=== PATIENT | male | born 1960 | race Caucasian/White ===

== ENCOUNTER → 2018-01-04 09:15 | Outpatient (CLI) | payer OTHER, SELFPAY ==
[2018-01-04 11:19] LABS: PSA,Total- Diagnostic 5.83 ng/mL (0.0-4.0)
== END ==
PROVIDERS: Family Provider Internal Medicine; PCP Internal Medicine; Visit Provider Urology
DX: R97.20 Elevated prostate specific antigen [PSA] (principal)
CPT/HCPCS: 36415; 84153

== ENCOUNTER 2019-05-08 10:38 | Day surgery (SDC) | payer OTHER, SELFPAY ==
[2019-04-18 09:41] VITALS: BMI 33.8
--- NOTE | 2019-04-18 11:13 | HP_ITS ---
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 Is patient in pain?: No Allergies No Known Allergies Allergy (Verified 04/18/19 09:42) Medications Lansoprazole [Prevacid] 30 mg PO DAILY 06/10/15 [History Confirmed 04/18/19] dutasteride 0.5 mg capsule 0.5 mg PO DAILY 04/18/19 [History Confirmed 04/18/19] enalapril maleate 20 mg tablet 40 mg PO DAILY tab 04/18/19 [History Confirmed 04/18/19] hydrochlorothiazide 12.5 mg tablet 12.5 mg PO DAILY 04/18/19 [History Confirmed 04/18/19] [facility] Medical History (Updated 04/18/19 @ 11:08 by Zion Gunderson MD) Cholelithiasis with chronic cholecystitis (Chronic) Cholelithiasis (Acute) Elevated PSA (Acute) Elevated liver enzymes (Acute) Heartburn (Acute) Hemorrhoids (Acute) Hyperglycemia (Acute) Sleep apnea (Acute) Hypertension (Chronic) Surgical History (Updated 04/18/19 @ 09:40 by Amy Ayala) History of left knee surgery (Acute) History of prostate biopsy (Acute) history bakers cyst right posterior knee (Acute) Family History (Updated 04/18/19 @ 09:38 by Amy Ayala) Brother Diabetes Hypertension Sister Hypercholesterolemia Social History (Updated 04/18/19 @ 11:15 by Zion Gunderson MD) Smoking Status: Never smoker alcohol intake: current alcohol intake frequency: a few times a month substance use type: does not use HPI HPI HPI: TIM METZ, is a 59 M who presents to the office today for HPI HPI Surgical H&P: Yes HPI: TIM METZ, is a 59 M who presents to the office today for surgical consultation regarding intermittent episodes of right upper quadrant pain with some radiation to the back as well as abnormal liver function test. The patient is referred by his primary care physician Dr. Moni Shine and a written copy of my surgical consult recommendations will be returned to him. The patient states that he recently establish care with Dr. Shine. Laboratory demonstrated abnormality in the liver function tests. The patient has been seen twice by general surgeon Dr. Hernandez. No surgery is been recommended. As noted below the patient had a gallbladder ultrasound demonstrating multiple gallstones. The patient has had some liver function test elevation in excluding a significant elevation of his total bilirubin. He denies viral hepatitis. He does note that he drinks alcohol in the form of liquor approximately 2 small glasses per day. He states that he is able not to drink on a particular day and denies withdrawal symptoms. He denies tremors. He has been having intermittent bouts of right upper quadrant pain. He describes the same as a dull cramp. More recently he has had some right scapular pain as well. The pressure pain can persist for several hours. He denies acute change in bowel habits. No bright red blood per rectum or melena. He occasionally will have looser stools. At [facility] on September 12, 2018 a gallbladder ultrasound had been obtained because of elevated liver function tests. The common bile duct was only visualized proximally and measured 4.2 mm. There were multiple gallstones. No gallbladder wall thickening. I have previous remote blood work from May 17, 2017 obtained at the [facility] by Dr. Jamari Morales. At that time the AST was 143 and the alkaline phosphatase 86 and the ALT 168 total bilirubin was 1.8 GGTP was 375. Hepatitis B surface antigen was negative. Hepatitis C antibody was negative. GEOFFREY was negative. The patient also previously January 04, 2018 and had a PSA level that was 5.83. More recent laboratory of September 05, 2018 demonstrated a AST of 116. ALT of 86. Alkaline phosphatase 76. Total bilirubin 3.2 ROS General General: No weight change, appetite, fatigue, colon cancer, breast cancer or weakness HEENT HEENT: No difficulty swallowing, eye injury, eye surgery, swollen glands or hoarseness Endo Endocrine: No thyroid disease, diabetes mellitus, thyroid cancer, Hair loss, heat intolerance or cold intolerance Skin Skin: No rash or changing moles Breast Breast: No left breast lump, right breast lump, nipple discharge, breast pain, abnormal mammogram, abnormal US or breast enlargement Musc Musculoskeletal: Yes gout; no back problems, arthritis, rheumatoid arthritis or joint pain Cardio Cardiovascular: Yes high blood pressure; no murmur, pacemaker, heart disease, atrial fibrillation, heart attack, heart stent, palpitations, shortness of breat with exertion or chest pain Psych Psychiatric: No depression, anxiety or hearing voices Resp Respiratory: No shortness of breath, Yes sleep apnea, No cough, No COPD, No asthma, No emphysema, No wheezing Gastro Gastrointestinal: No abdominal pain, No nausea or vomiting, No diarrhea, No constipation, No blood in stool, Yes acid reflux, Yes hemorrhoids, No ulcers, Yes gallbladder problem, No black,tarry stools Yong Hematologic: No blood thinners, No blood disorders, No bleeding, No anemia, No blood clots Neuro Neurologic: No system reviewed and no additional complaints, except as docu, No as per HPI, No abnormal walking, No abnormal hearing, No abnormal movements, No abnormal speech, No behavioral changes, No burning sensations, No confusion, No seizure-like activity, No unsteadiness, No dizziness, No localized weakness, No frequent falls, No headache(s), No lack of coordination, No loss of vision, No memory loss, No numbness, No other visual disturbances, No radiating pain, No restless legs, No sensory deficit, No fainting, No tingling, No tremor(s), No weakness, No other Exam Const General: cooperative, healthy appearing, comfortable, no acute distress Nutritional Appearance: obese Orientation: alert, awake HENMO Head: normal to inspection Chest Breast Palpation: No nipple discharge Resp Effort & Inspection: normal respiratory effort Auscultation: clear to auscultation bilaterally Cardio Rate: regular rate Rhythm: regular rhythm Heart Sounds: no murmurs GI Palpation: soft, no hepatosplenomegaly Auscultation: normal bowel sounds Neuro General: alert, awake Extrem General: no calf tenderness bilaterally Psych Affect: normal affect Assessment & Plan Problems 1. Calculus of gallbladder with chronic cholecystitis without obstruction K80.10 Plan 59-year-old gentleman. Symptoms and laboratory are suspicious for chronic cholecystitis, cholelithiasis, possible choledocholithiasis. I am recommending to him a laparoscopic cholecystectomy with intraoperative cholangiography. In addition I have suggested that he may be benefited from a laparoscopic common bile duct exploration if indicated. I have discussed with him the technique, benefits, risks, alternatives. He has had an opportunity to ask and have questions answered. In addition I have discussed with him the potential benefit of a laparoscopic needle core liver biopsy to further facilitate his medical management and care. He has had an opportunity to ask and have questions answered. 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 He states that state mandate suggest that he be able to lift 50 pounds. We have tentatively discussed the minimum need of 3 weeks recovery post surgery. Definitive return to work will be decided in his postoperative period. He has had an opportunity to ask and have questions answered. We will schedule and proceed at his discretion. I very much appreciate the kind opportunity of assisting with his surgical care. CC: Dr Moni Gunderson M.D., F.A.C.S. Medications New: hydrochlorothiazide 12.5 mg PO DAILY dutasteride 0.5 mg PO DAILY Coding Level of Care Code 04972 Diagnoses Calculus of gallbladder with chronic cholecystitis without obstruction K80.10 ??Cholelithiasis location: gallbladder ??Biliary obstruction: without biliary obstruction 04/18/19 1115 <Electronically signed by Zion zuniga MD> Date _ Zion Gunderson MD I have re-examined the patient. There are no clinical changes since date of exam. Please refer to the preoperative laboratory demonstrating abnormal liver function tests. Cholangiogram and if need be needle core liver biopsy anticipated.
--- NOTE | 2019-05-06 14:24 | EKG12_ITS ---
Test Reason : PREOP Blood Pressure : / mmHG Vent. Rate : 075 BPM Atrial Rate : 075 BPM P-R Int : 184 ms QRS Dur : 082 ms QT Int : 390 ms P-R-T Axes : 025 005 034 degrees QTc Int : 435 ms Normal sinus rhythm Normal ECG Confirmed by SHALOM ALFARO, ELLEN ([id number]), editor in chief ELISEO DEAL ([id number]) on 05/07/2019 2:48:59 PM Referred By: Zion Gunderson Confirmed By:ELLEN RAUSCH MD
[2019-05-06 15:25] LABS: Hematocrit 46.7 % (40-54); Hemoglobin 15.7 g/dL (13.0-16.5); Mean Corp Hgb Conc 33.6 g/dL (32-36); Mean Corpuscular Hgb 32.8 pg (27.0-32.0); Mean Corpuscular Volume 97.7 fL (80-94); Mean Platelet Vol. 11.3 fl (6.2-12.0); Platelet Count 136 K/mm3 (150-450); RBC Distribution Width CV 14.2 % (11.6-14.6); RBC Distribution Width SD 51.6 fl (35.1-43.9); Red Blood Count 4.78 M/mm3 (4.6-6.2); White Blood Count 5.4 K/mm3 (4.4-11.0)
[2019-05-06 16:19] LABS: ALB/GLOB Ratio 0.7 RATIO (0.9-2.4); AST(SGOT) 74 U/L (15-37); Alanine Aminotransfer ALT/SGPT 79 U/L (16-61); Albumin, Serum 3.5 g/dL (3.2-5.0); Alkaline Phosphatase 91 U/L (45-117); Anion Gap 8 (5-15); BUN 13 mg/dL (7-18); BUN/Creat Ratio 11.2 RATIO (10-20); Calcium,Total 9.5 mg/dL (8.5-10.1); Chloride 101 mmol/L (98-107); Creatinine, Serum 1.16 mg/dL (0.70-1.30); EST Glomerular Filtration Rate 68 mL/min (>60); Est Glom Filt Rate - Afr Amer 83 mL/min (>60); Globulin 4.7 g/dL (2.2-4.2); Glucose 190 mg/dL (74-106); Potassium 4.2 mmol/L (3.5-5.1); Protein, Total 8.2 g/dL (6.4-8.2); Sodium Level 134 mmol/L (136-145)
[2019-05-08 11:12] VITALS: BP 125/83; PULSE 70; RESP 18; TEMP 36.4; O2SAT 98; BMI 33.5
[2019-05-08] MEDS: Lactated Ringers 1,000 ML 100 ML IV (11:36)
--- NOTE | 2019-05-08 13:05 | RAD_ITS ---
CLINICAL HISTORY: Male, 59 years old. Cholecystectomy PROCEDURE: CHOLANGIOGRAM - intraoperative FLUOROSCOPY TIME (if supplied): 4.6 seconds Placement of the catheter and the procedure were performed by: Operating surgeon Fluoroscopy was provided by chief ultrasound technologist, who was present in the room time of the procedure. TECHNIQUE: (Numerous fluoroscopic approximately 177 guided images were obtained during intraoperative cholangiogram demonstrating patency of the bile ducts without evidence for intraluminal stones or obstruction) For more complete information recommend correlation with surgical notes RAD/Cholangiogram/ O R,Initial IMPRESSION: Normal intraoperative cholangiogram Electronically Signed: Garfield Villegas MD at 19:34 EST , Service support ,
--- NOTE | 2019-05-08 13:05 | GALL_PTH ---
PATIENT: TIM METZ LOC[place] [facility] [place][id number] AGE/SX: 59/M ROOM: RE05/08/[address]: Dr. Zion Gunderson MD : 1960 BED: DIS: 05/08/2019 SPEC #: [id number] RECD: 05/09/19 08:36 STATUS: DINORAH DERECK #: [id number] DELIA: 05/08/19 13:[address]: Zion Gunderson DEPT: SURGICAL PATHOLOGY RECD BY: Kenny Gregg ENTERED: 05/09/19 10:43 SP TYPE: SIVAKUMAR MCKINNEY DR: Dr. Moni Shine MD Tissues: A - Gallbladder, NOS B - Liver, NOS Procedures: PAS with Diastase (control) PAS Fungus (control) Trichrome (control) Special Stain Group II Special Stain Group I PAS Stain (control) Surgery Specimen Level III Surgery Specimen Level V AFB Stain (control) Retic (control) Iron Stain (control) HEADER OPERATION: Laparoscopic cholecystectomy with IOC, common bile duct PRE-OP DIAGNOSIS: Calculus of gallbladder, chronic cholecystitis without obstruction K80.10 TISSUE SUBMITTED: A - Liver biopsy tissue, B - Gallbladder MICROSCOPIC DIAGNOSIS A. Liver, core biopsy: Chronic hepatitis, grade 4 with cirrhosis (modified Knodell scoring system for chronic hepatitis). Macrovesicular steatosis and microvesicular steatosis. See microscopic description. B. Gallbladder, cholecystectomy: Chronic cholecystitis and cholelithiasis. Benign paracystic lymph node with non-necrotizing granulomatous inflammation. Negative for acid-fast bacilli and fungal organisms. AM:danielle 05/10/19 COMMENT Case has been reviewed in consultation with Dr. Anthony who concurs with the above diagnosis. IDC:SJ MICROSCOPIC DESCRIPTION Slides are reviewed. A. Sections show hepatic parenchyma with severe limiting plate necrosis and bridging necrosis. Trichrome stain with matched control reveals cirrhosis. Iron stain with matched control does not reveal increased evolution of intraparenchymal iron. PAS stain with and without diastase does not reveal accumulation of abnormal protein. Reticulin stain with matched control reveals normal trabecular pattern. GROSS DESCRIPTION A - Received in fixative is one container labeled with the patient's name and designated biopsy liver tissue. The specimen consists of two elongated fragments of lobo-light brown soft tissue each measuring 1.5 cm in length and 1 cm in diameter. The specimen is totally submitted in one cassette. B - Received is one container labeled with the patient's name and designated gallbladder. The specimen consists of a gallbladder measuring 8.5 cm in length and 2.5 cm in diameter. The external surface is pink-lobo, smooth and glistening for the most part. Focally it is granular, hemorrhagic and contains cautery artifact. The gallbladder contains a small amount of green-yellow mucoid bile and four variable sized black stones measuring in aggregate 1.5 x 1 x 1 cm and 0.3 to 1 cm in greatest dimension. The mucosa is bile-stained and without any mass lesions. The gallbladder wall measures up to 0.2 cm in thickness. A small bluish polyp is noted measuring 0.1 cm in greatest dimension and may represent cholesterolosis. Paintings Conservator sections from the gallbladder and the cystic duct are submitted in one cassette. / SJ:danielle 05/09/19 TC:3 CPT: 36891, 56742, 70603 x6, 75517 x2
[2019-05-08] MEDS: Cefazolin 2 GM in 0.9% Normal Saline 100 ML IV (14:00)
--- NOTE | 2019-05-08 15:41 | PCM.DC.GS ---
Discharge Diet: Light diet - advance as tolerated - if you have questions about your diet instructions, please talk to you doctor. Discharge Activity: May Not Drive - for 3-5 days or while taking narcotic pain medicine. May shower in (days): 1 Lifting Restrictions: 10 pounds Call your doctor if your incision/area has: Continuous Slow Oozing, Sudden Increased Bleeding, Increased Pain/ Swelling, Increased Redness, Foul Smelling Discharge Call your doctor if you observe: Fever of 101 or Higher Suture Line Care: Avoid Pulling/Pushing, Avoid Pinching/Bending Additional Dressing/Incision Instructions:: Change or remove dressing in 4 days. Leave steri-strips in place for 1 week. Allergies/Adverse Reactions: Allergies No Known Allergies Allergy (Verified 05/08/19 11:09) Medications to take at Discharge Lansoprazole [Prevacid] 30 mg PO DAILY 06/10/15 dutasteride 0.5 mg capsule 0.5 mg PO DAILY 04/18/19 enalapril maleate 20 mg tablet 40 mg PO DAILY tab 04/18/19 hydrochlorothiazide 12.5 mg tablet 12.5 mg PO DAILY 04/18/19 Orders to be completed after discharge: 12 Lead EKG [CVS] Time Frame: 04/29/19, Facility: [facility], Location: Cardiovascular Services CBC-Complete Blood Cnt No Diff Time Frame: 04/29/19, Facility: [facility], Location: Laboratory Comprehensive Metabolic Profil Time Frame: 04/29/19, Facility: [facility], Location: Laboratory Primary Care Physician: Moni Shine [Primary Care Provider] - Test Results: Test results from this visit will be discussed in further detail at your follow-up appointment, if applicable. Please Follow Up With: Zion Gunderson MD - [phone] When: Call to make an appointment to be seen in about 10 days.
--- NOTE | 2019-05-08 15:44 | OP.PCM_ITS ---
Problem List (1) Cholelithiasis with chronic cholecystitis Status: Chronic Qualifiers: Cholelithiasis location: gallbladder Biliary obstruction: without biliary obstruction Qualified Code(s): K80.10 - Calculus of gallbladder with chronic cholecystitis without obstruction Report of Operation Date of Procedure: 05/08/19 Pre-Operative Diagnosis: Chronic cholecystitis cholelithiasis possible cirrhosis possible choledocholithiasis Post-Operative Diagnosis: Chronic cholecystitis, cholelithiasis, liver cirrhosis, small dermal abscess epigastric abdomen Surgery/Procedure Performed:: Laparoscopic cholecystectomy with intraoperative cholangiograms. Laparoscopic Jean-Cut needle core right liver biopsy. Incision and drainage dermal abscess epigastric abdomen Description of Surgical Findings:: 59-year-old gentleman who is been having problems with epigastric right upper quadrant pain. He has abnormality of liver function tests. Findings suspicious for either cirrhosis or chronic cholecystitis cholelithiasis. Timeout informed consent was obtained. Was taken the operative room placed on table underwent general endotracheal intubation anesthesia. Ancef 2 g given intravenous preoperatively. The abdomen sterilely prepped draped. He had 2 sites of suspected superficial infection these were excluded from the surgery by placing OpSite dressings and then an Ioban dressing. 0.5% Marcaine was used as a local anesthetic. Skin sites were pre-anesthetized. Throughout the procedure total 30 cc was used. A vertical infraumbilical incision was created holding sutures of 0 Vicryl placed varies needle inserted saline drop test performed the abdomen is insufflated CO2 to pressure of 10 the cervical pressure Mami trocar inserted 10 lap scope inserted on the ventricular injuries and direct physician 5 Phillip port was placed in the epigastric area right upper quadrant right lateral upper quadrant inspection revealed diffusely cirrhotic liver the gallbladder appeared to be mildly distended. I was able to distract the gallbladder I performed a very tedious careful blunt and sharp dissection at the infundibular area. I did copiously used Hem-o-stormy clips to assure hemostasis. I was able to secure a posterior cystic artery with a hemo- lock clip prior to transecting it. I identified the cystic artery and cystic duct with good visualization of the critical view. I placed 2 hemo-lock clips proximally one distally on the cystic artery prior to transecting it. I placed a Hemoclip on the cystic duct and incision in the cystic duct place a cholangiogram catheter to perform fluoroscopic control cholangiograms which demonstrated filling distally into the small bowel and filling proximal without common duct dilatation. I removed the clench Haris catheter and put a very secure hemo-lock clip on the cystic duct stump prior to transecting it. I then tediously dissected the gallbladder free from the liver bed great care was taken to obtain hemostasis. Very minimal amount of liquid bile leak which was aspirated very quickly. There was no stone loss. The gallbladder was released immediately placed in a retrieval bag. The right upper quadrant was irrigated and aspirated free of excess fluid. A piece of fibrillar was placed in the liver bed. I performed then to Jean-Cut needle core biopsies of the right lobe of the liver. These were placed on Telfa and immediately placed in formalin. That area the liver was then treated with electrocautery. Area was carefully inspected was noted to be completely hemostatic. The trochars now removed and visualization. The abdomen was allowed to deflate of the CO2. The fascia at the umbilicus approximate interrupted 0 Vicryl figur e-of-eight suture. Skin edges proximal interrupted 4-0 Monocryl subdermal stitches. Steri-Strips Telfa and OpSite dressings applied. Finally at the end of his time needle abscess in the epigastric area that he presented to incised with an 11 blade scalpel allowed to drain and a Telfa OpSite was placed upon that. Specimen gallbladder and liver cores. Drains none. Blood loss minimal. Zion Gunderson M.D., F.A.C.S. Type of Anesthesia:: General Anesthesiologist: Juan Sprague
[2019-05-08] MEDS: Bupivacaine Mpf 0.5% 30 ML VIAL (15:45)
[2019-05-08 16:06] VITALS: BP 112/56; BP 125/83; PULSE 92; RESP 16; TEMP 36.4; O2SAT 97
[2019-05-08 16:15] VITALS: BP 112/57; BP 125/83; PULSE 85; RESP 16; O2SAT 97
[2019-05-08 16:30] VITALS: BP 122/56; BP 125/83; PULSE 88; RESP 16; O2SAT 97
[2019-05-08 16:45] VITALS: BP 124/62; BP 125/83; PULSE 80; RESP 16; TEMP 36.8; O2SAT 97
[2019-05-08] MEDS: HYDROcodone Bitartrate/Apap 5/325 Tablet PO (17:28)
[2019-05-08 17:51] VITALS: BP 125/83; BP 146/78; PULSE 79; RESP 18; TEMP 36.3; O2SAT 95
== END 2019-05-08 18:11 | disposition home or self-care (01) ==
LOC: SDC 10:40 → AC 10:45
PROVIDERS: Family Provider Internal Medicine; PCP Internal Medicine; Referring Provider Surgery; Visit Provider Surgery
PROC: (CPT 47610; principal; 2019-05-08 12:45)
DX: K80.10 Calculus of gallbladder with chronic cholecystitis without obstruction (principal); K73.9 Chronic hepatitis, unspecified; K74.60 Unspecified cirrhosis of liver; K76.0 Fatty (change of) liver, not elsewhere classified; L02.211 Cutaneous abscess of abdominal wall; I10 Essential (primary) hypertension; M10.9 Gout, unspecified; M48.02 Spinal stenosis, cervical region; G47.30 Sleep apnea, unspecified; K21.9 Gastro-esophageal reflux disease without esophagitis; Z79.899 Other long term (current) drug therapy
CPT/HCPCS: 00790; 10060; 47000; 47563; 36415; 74300; 76000; 80053; 85027; 88304; 88305; 88307; 88312; 88313; 93005; J7120; J2405

== ENCOUNTER → 2020-11-23 10:04 | Outpatient (CLI) | payer OTHER, SELFPAY ==
[2019-05-09 10:11] VITALS: BMI 33.5
--- NOTE | 2020-11-23 10:15 | MRI_ITS ---
MR Abdomen WO/W Contrast 11/23/2020 10:51 AM COMPARISON: None CLINICAL HISTORY: CIRRHOSIS, ABNORMAL LABS TECHNIQUE: Multiplanar T1 and T2 weighted, diffusion and dynamic post-gadolinium images were obtained through the abdomen. FINDINGS: Liver: Slightly nodular contour compatible with cirrhosis. No LI-RADS 5 lesions are seen. Gallbladder: Unremarkable Spleen: Unremarkable Pancreas: Unremarkable Adrenal Glands: Unremarkable Kidneys: Unremarkable GI Tract: Unremarkable Lymphadenopathy: Absent Ascites: Absent Bones: No suspicious lesions MRI/MRI Abd WITH and W/O Contrast IMPRESSION: Slightly nodular contour of the liver could represent early cirrhosis. No suspicious T2 hyperintense or arterially hyperenhancing lesions are seen. Electronically Signed: Constantino Muniz MD at 22:35 EDT Tel , Service support ,
[2020-11-23 10:35] LABS: EGFR FINGERSTICK > 60.0000 mL/min (>60)
== END ==
PROVIDERS: PCP Internal Medicine; Referring Provider Internal Medicine Gastroenterology; Visit Provider Internal Medicine Gastroenterology
DX: K74.60 Unspecified cirrhosis of liver (principal)
CPT/HCPCS: 74183; A9575

== ENCOUNTER → 2021-05-19 11:24 | Outpatient (CLI) | payer OTHER, SELFPAY ==
[2021-05-19 15:18] LABS: Hematocrit 49.6 % (40-54); Hemoglobin 16.6 g/dL (13.0-16.5); Mean Corp Hgb Conc 33.5 g/dL (32-36); Mean Corpuscular Hgb 31.3 pg (27.0-32.0); Mean Corpuscular Volume 93.4 fL (80-94); Mean Platelet Vol. 11.8 fl (6.2-12.0); Platelet Count 164 K/mm3 (150-450); RBC Distribution Width CV 14.3 % (11.6-14.6); RBC Distribution Width SD 49.7 fl (35.1-43.9); Red Blood Count 5.31 M/mm3 (4.6-6.2); White Blood Count 5.6 K/mm3 (4.4-11.0)
[2021-05-19 15:35] LABS: International Normalized Ratio 1.1; Prothrombin Time (Protime)PT. 13.9 SECONDS (11.7-14.9)
[2021-05-19 15:39] LABS: ALB/GLOB Ratio 0.9 RATIO (0.9-2.4); AST(SGOT) 36 U/L (15-37); Alanine Aminotransfer ALT/SGPT 47 U/L (16-61); Albumin, Serum 3.8 g/dL (3.2-5.0); Alkaline Phosphatase 91 U/L (45-117); Anion Gap 8 (5-15); BUN 14 mg/dL (7-18); Calcium,Total 9.7 mg/dL (8.5-10.1); Chloride 103 mmol/L (98-107); EST Glomerular Filtration Rate 81 mL/min (>60); Est Glom Filt Rate - Afr Amer 98 mL/min (>60); Globulin 4.1 g/dL (2.2-4.2); Glucose 101 mg/dL (74-106); Potassium 3.9 mmol/L (3.5-5.1); Protein, Total 7.9 g/dL (6.4-8.2); Sodium Level 136 mmol/L (136-145)
[2021-05-19 16:10] LABS: Partial Thromboplast Time 31.9 Seconds (24.1-36.2)
[2021-05-21 10:16] LABS: AFP, Tumor Marker 3.3 ng/mL (0.0-8.3)
== END ==
PROVIDERS: PCP Internal Medicine; Referring Provider Internal Medicine Gastroenterology; Visit Provider Internal Medicine Gastroenterology
DX: K74.60 Unspecified cirrhosis of liver (principal)
CPT/HCPCS: 36415; 80053; 82105; 85027; 85610; 85730

== ENCOUNTER → 2022-07-27 | Outpatient (CLI) | payer OTHER, SELFPAY ==
--- NOTE | 2022-07-27 12:50 | NEURO ---
NCS and/or EMG Patient Report Ordering Doctor: Moni Shine DATE OF SERVICE: 07/27/22 Elliott presents for electrodiagnostic testing of the left upper limb. He reports numbness and tingling in the left hand. Electrodiagnostic findings: Left median motor nerve demonstrates prolonged distal latency with normal amplitude and conduction velocity. Normal left ulnar motor response, including conduction across the elbow. Absent left median sensory latency at the wrist. Prolonged left median palmar latency. On needle EMG, all muscles tested in the left upper limb showed no evidence of denervation with normal motor unit action potentials. Electrodiagnostic impression: This is an abnormal study in the left upper limb 1. Electrodiagnostic findings demonstrate left-sided median mononeuropathy, consistent with a moderate left carpal tunnel syndrome.
== END | disposition home or self-care (01) ==
LOC: PSN 10:36
PROVIDERS: PCP Internal Medicine; Referring Provider Internal Medicine; Visit Provider Internal Medicine
DX: R20.0 Anesthesia of skin (principal)
CPT/HCPCS: 95886; 95910

== ENCOUNTER → 2022-12-07 | Outpatient (CLI) | payer OTHER, SELFPAY ==
[2022-12-07 12:59] LABS: Hematocrit 47.6 % (40-54); Hemoglobin 15.5 g/dL (13.0-16.5); Mean Corp Hgb Conc 32.6 g/dL (32-36); Mean Corpuscular Hgb 30.8 pg (27.0-32.0); Mean Corpuscular Volume 94.4 fL (80-94); Mean Platelet Vol. 11.2 fl (6.2-12.0); Platelet Count 127 K/mm3 (150-450); RBC Distribution Width CV 14.9 % (11.6-14.6); RBC Distribution Width SD 51.7 fl (35.1-43.9); Red Blood Count 5.04 M/mm3 (4.6-6.2); White Blood Count 4.9 K/mm3 (4.4-11.0)
[2022-12-07 13:05] LABS: International Normalized Ratio 1.1
[2022-12-07 13:06] LABS: Partial Thromboplast Time 29.8 Seconds (24.1-36.2)
[2022-12-07 13:38] LABS: AST(SGOT) 66 U/L (15-37); Alanine Aminotransfer ALT/SGPT 71 U/L (16-61); Albumin, Serum 3.8 g/dL (3.2-5.0); Alkaline Phosphatase 82 U/L (45-117); Anion Gap 8 (5-15); BUN 19 mg/dL (7-18); BUN/Creat Ratio 18.1 RATIO (10-20); Calcium,Total 9.5 mg/dL (8.5-10.1); Chloride 107 mmol/L (98-107); Creatinine, Serum 1.05 mg/dL (0.70-1.30); EST Glomerular Filtration Rate 76 mL/min (>60); Est Glom Filt Rate - Afr Amer 92 mL/min (>60); Glucose 84 mg/dL (74-106); Potassium 4.3 mmol/L (3.5-5.1); Protein, Total 7.8 g/dL (6.4-8.2); Sodium Level 138 mmol/L (136-145)
[2022-12-08 04:07] LABS: AFP, Tumor Marker 3.5 ng/mL (0.0-8.4)
== END | disposition home or self-care (01) ==
PROVIDERS: PCP Internal Medicine; Referring Provider Internal Medicine Gastroenterology; Visit Provider Internal Medicine Gastroenterology
DX: K74.60 Unspecified cirrhosis of liver (principal)
CPT/HCPCS: 36415; 80053; 82105; 85027; 85610; 85730

== ENCOUNTER → 2022-12-22 | Outpatient (CLI) | payer OTHER, SELFPAY ==
--- NOTE | 2022-12-22 07:04 | MRI_ITS ---
STUDY: MRI ABDOMEN WITH AND WITHOUT CONTRAST REASON FOR EXAM: Male, 62 years old. CIRRHOSIS TECHNIQUE: Standardized fat and water weighted pulse sequences were obtained in all 3 orthogonal planes post contrast administration. IV contrast (please see hospital documentation) was administered for the contrast portion of the examination. COMPARISON: 11/23/2020 FINDINGS: Base of the chest is unremarkable. Increasing heterogeneity throughout the liver with micronodular contours particularly along the right hepatic lobe. No hepatic masses are identified. The portal vein is patent with persistent recanalized periumbilical vein suggesting portal hypertension. Gallbladder is absent. Normal spleen. Normal pancreas. Normal bilateral adrenal glands. Normal right kidney. Normal left kidney. Yesenia viscus structures are unremarkable. Abdominal aorta is unremarkable. Normal abdominal wall. No bone marrow edema. MRI/MRI Abd WITH and W/O Contrast IMPRESSION: 1. Worsening heterogeneity and micronodularity of the liver compatible with history provided cirrhosis. 2. Recanalized paraumbilical vein suggesting portal hypertension. Portal vein is patent. 3. No discrete hepatic masses. Electronically Signed: Kofi Irving (Brooks), at 17:12 EDT ,
== END | disposition home or self-care (01) ==
LOC: MRI 06:58
PROVIDERS: PCP Internal Medicine; Referring Provider Internal Medicine Gastroenterology; Visit Provider Internal Medicine Gastroenterology
DX: K74.60 Unspecified cirrhosis of liver (principal)
CPT/HCPCS: 74183; A9575; A4216

== ENCOUNTER → 2023-08-02 | Outpatient (CLI) | payer OTHER, SELFPAY ==
[2023-08-02 11:53] LABS: Hemoglobin 16.8 g/dL (13.0-16.5); Mean Corp Hgb Conc 33.6 g/dL (32-36); Mean Corpuscular Hgb 31.4 pg (27.0-32.0); Mean Corpuscular Volume 93.5 fL (80-94); Mean Platelet Vol. 11.2 fl (6.2-12.0); Platelet Count 145 K/mm3 (150-450); RBC Distribution Width CV 14.5 % (11.6-14.6); RBC Distribution Width SD 49.5 fl (35.1-43.9); Red Blood Count 5.35 M/mm3 (4.6-6.2); White Blood Count 4.6 K/mm3 (4.4-11.0)
[2023-08-02 11:59] LABS: International Normalized Ratio 1.1
[2023-08-02 12:00] LABS: Partial Thromboplast Time 29.4 Seconds (24.1-36.2)
[2023-08-02 12:52] LABS: AST(SGOT) 70 U/L (15-37); Alanine Aminotransfer ALT/SGPT 87 U/L (16-61); Albumin, Serum 3.8 g/dL (3.2-5.0); Alkaline Phosphatase 70 U/L (45-117); Bilirubin, Direct 0.39 mg/dL (0.00-0.30); Cholesterol 163 mg/dL (200); Globulin 4.2 g/dL (2.2-4.2); High Density Lipoprotein 50 mg/dL; Triglycerides 104 mg/dL; Very Low Density Lipoprotein 21 mg/dL (5-40)
[2023-08-02 13:52] LABS: GGTP 187 U/L (15-85)
[2023-08-03 05:52] LABS: AFP, Tumor Marker 3.8 ng/mL (0.0-8.4)
== END | disposition home or self-care (01) ==
PROVIDERS: PCP Internal Medicine; Referring Provider Internal Medicine Gastroenterology; Visit Provider Internal Medicine Gastroenterology
DX: K74.60 Unspecified cirrhosis of liver (principal)
CPT/HCPCS: 36415; 80061; 80076; 82105; 82977; 85027; 85610; 85730

== ENCOUNTER → 2023-08-16 | Outpatient (CLI) | payer OTHER, SELFPAY ==
--- NOTE | 2023-08-16 08:07 | US_ITS ---
STUDY: RIGHT UPPER QUADRANT ABDOMINAL ULTRASOUND REASON FOR EXAM: Male, 63 years old. Cirrhosis of the liver TECHNIQUE: Transabdominal ultrasound was performed with real-time and static gorman scale imaging. TECHNICAL QUALITY: Adequate. COMPARISON: None. FINDINGS: Liver: The liver measures 16.5 cm. There is increased echogenicity consistent with fatty infiltration. The bile ducts are within normal limits. There is hepatic color flow. The direction of portal flow is hepatopetal. There is no demonstrated mass lesion. The umbilical vein is recanalized which is associated with cirrhosis and portal vein hypertension. Gallbladder: The patient is status post cholecystectomy. Common Bile Duct (C.B.D.): The common bile duct is not visualized. Pancreas: Only the pancreatic head is visualized which is grossly unremarkable. The remaining aspects of the pancreas are secured by bowel gas. Right Kidney: Normal size of the right kidney. The right kidney measures 11.3 x 5.2 x 4.41 cm. Normal renal cortex. There is no demonstrated renal mass or cyst. There is no right hydronephrosis. There is no ascites. US/Abdomen Limited IMPRESSION: 1. Diffusely echogenic/fatty infiltration of the liver. No visualized nodularity of the liver on this exam. 2. Recanalization of the umbilical vein which can be associated with cirrhosis and portal vein hypertension Electronically Signed: Jose Maria Melton MD at 10:39 EDT ,
--- OUTSIDE RECORDS SUMMARY | 2023-08-16 08:21 | XMS RPT_ITS | CCD ---
Author Name Unknown Address [address] [place] [address] Organization [facility] Care Team Providers Care Spring Coverer Name Role Phone REFERRING, RICARDO DAWN ID Unavailable Unavailable FAYE VALERO Unavailable Unavailable MIKE ALFARO, DR BROCK Primary Care Physician MIKE ALFARO, DR BROCK Primary Care Physician IRAM ALFARO, DR MEJIA Attending Unavailjensen MCKEON MD, DR BROCK Primary Care Unavailable GLADYS MAYERS DR Attending Unavailable GLADYS MAYERS DR Primary Care Unavailable GLADYS MAYERS DR Admitting Unavailable DELMY MCKEON MD Consulting Unavailable PROVIDER, UNKNOWN Consulting Unavailable PROVIDER, UNKNOWN Consulting Unavailable PROVIDER, UNKNOWN Consulting Unavailable DELMY MCKEON MD Primary Care Unavailable DELMY MCKEON MD Admitting Unavailable DELMY MCKEON MD Attending Unavailable DELMY MCKEON MD Consulting Unavailable PROVIDER, UNKNOWN Consulting Unavailable PROVIDER, UNKNOWN Consulting Unavailable PROVIDER, UNKNOWN Consulting Unavailable DELMY MCKEON MD Consulting Unavailable DELMY MCKEON MD Primary Care Unavailable DELMY MCKEON MD Admitting Unavailable DELMY MCKEON MD Attending Unavailable PROVIDER, UNKNOWN Consulting Unavailable PROVIDER, UNKNOWN Consulting Unavailable PROVIDER, UNKNOWN Consulting Unavailable Medications Current Medications Medication Drug Class(es) Dates Sig (Normalized) Sig (Original) carvedilol 3.125 mg oral tablet (2 sources) alpha-Adrenergic Liam, beta-Adrenergic Liam Start: 08-03-2019 carvedilol 3.125 mg oral tablet Dose : 3.125 mg = 1 tab(s), Oral, BIDM, 0 Refill(s) Start Date: 08/03/19 Status: Ordered Problems Problem Classification Problem Date Documented Da te Episodic/Chronic Diabetes mellitus without complication (1 source) Type 2 diabetes mellitus without complications; Translations: [Type 2 diabetes mellitus without complications] Onset: 07-04-2023 Chronic Essential hypertension (1 source) Essential (primary) hypertension; Translations: [Essential (primary) hypertension] Onset: 07-04-2023 Chronic Other liver diseases (1 source) Unspecified cirrhosis of liver; Translations: [Unspecified cirrhosis of liver] Onset: 07-04-2023 Chronic Other nervous system disorders (3 sources) Carpal tunnel syndrome, left upper limb; Translations: [Carpal tunnel syndrome, left upper limb] Onset: 08-30-2022 Chronic Unclassified (3 sources) Encounter for screening for malignant neoplasm of prostate; Translations: [ENCOUNTER FOR SCREENING FOR MALIGNANT NEOPLASM OF PROSTATE] Onset: 12-02-2016 Episodic Unclassified (2 sources) Elevated prostate specific antigen [PSA]; Translations: [ELEVATED PROSTATE SPECIFIC ANTIGEN (PSA)] Onset: 12-02-2016 Results Test Name Value Interpretation Reference Range Facil ity Vital Signs Date Time Vital Sign Value Performing Clinician Faci lity 01-09-2023 09:55-0400 Diastolic Blood Pressure Non-Invasive [address] JACKIE WALDEN MD [facility] 01-09-2023 09:55-0400 Heart rate 56 /min DR JACKIE WALDEN MD [facility] 01-09-2023 09:55-0400 Respiratory rate 15 /min DR JACKIE WALDEN MD [facility] 01-09-2023 09:55-0400 Systolic Blood Pressure Non-Invasive [address] JACKIE WALDEN MD [facility] 01-09-2023 09:50-0400 Diastolic Blood Pressure Non-Invasive [address] JACKIE WALDEN MD [facility] 01-09-2023 09:50-0400 Heart rate 57 /min DR JACKIE WALDEN MD [facility] 01-09-2023 09:50-0400 Respiratory rate 17 /min DR JACKIE WALDEN MD [address] [place] [address] 01-09-2023 09:50-0400 Systolic Blood Pressure Non-Invasive [address] JACKIE WALDEN MD [facility] 01-09-2023 09:45-0400 Diastolic Blood Pressure Non-Invasive [address] JACKIE WALDEN MD [facility] 01-09-2023 09:45-0400 Heart rate 55 /min DR JACKIE WALDEN MD [facility] 01-09-2023 09:45-0400 Respiratory rate 15 /min DR JACKIE WALDEN MD [facility] 01-09-2023 09:45-0400 Systolic Blood Pressure Non-Invasive [address] JACKIE WALDEN MD [facility] 01-09-2023 09:35-0400 Respiratory Rate - Anes 16 br/min DR JACKIE WALDEN MD [facility] 01-09-2023 09:30-0400 Respiratory Rate - Anes 6 br/min DR JACKIE WALDEN MD [facility] 01-09-2023 09:25-0400 Respiratory Rate - Anes 12 br/min DR JACKIE WALDEN MD [facility] 01-09-2023 08:04-0400 Body height 177.[address] JACKIE WALDEN MD [facility] 01-09-2023 08:04-0400 Body temperature 96.98 [degF] DR JACKIE WALDEN MD [facility] 01-09-2023 08:04-0400 Body weight [address] JACKIE WALDEN MD [facility] 01-09-2023 08:04-0400 Body weight 31.63 kg/m2 DR JACKIE WALDEN MD [facility] 01-09-2023 08:04-0400 Heart rate 57 /min DR JACKIE WALDEN MD [facility] 04-26-2021 09:07-0500 Diastolic Blood Pressure NBP [address] JACKIE WALDEN MD [facility] 04-26-2021 09:07-0500 Heart rate 64 /min DR JACKIE WALDEN MD [facility] 04-26-2021 09:07-0500 Respiratory rate 17 /min DR JACKIE WALDEN MD [facility] 04-26-2021 09:07-0500 Systolic Blood Pressure NBP [address] JACKIE WALDEN MD [facility] 04-26-2021 09:01-0500 Diastolic Blood Pressure NBP [address] JACKIE WALDEN MD [facility] 04-26-2021 09:01-0500 Heart rate 66 /min DR JACKIE WALDEN MD [facility] 04-26-2021 09:01-0500 Respiratory rate 18 /min DR JACKIE WALDEN MD [facility] 04-26-2021 09:01-0500 Systolic Blood Pressure NBP [address] JACKIE WALDEN MD [facility] 04-26-2021 08:57-0500 Diastolic Blood Pressure NBP [address] JACKIE WALDEN MD [facility] 04-26-2021 08:57-0500 Heart rate 66 /min DR JACKIE WALDEN MD [facility] 04-26-2021 08:57-0500 Respiratory rate 17 /min DR JACKIE WALDEN MD [facility] 04-26-2021 08:57-0500 Systolic Blood Pressure NBP [address] JACKIE WALDEN MD [facility] 04-26-2021 08:54-0500 Body temperature 97.7 [degF] DR JACKIE WALDEN MD [facility] 04-26-2021 07:35-0500 Body height 177.[address] JACKIE WALDEN MD [facility] 04-26-2021 07:35-0500 Body weight 102.[address] JACKIE WALDEN MD [facility] 04-26-2021 07:28-0500 Body temperature 97.16 [degF] DR JACKIE WALDEN MD [facility] 04-26-2021 07:28-0500 Heart rate 63 /min DR JACKIE WALDEN MD [facility] Encounters Encounter Date Encounter Type Care Provider Facility Start: 07-04-2023 End: 07-04-2023 [facility] Start: 01-09-2023 End: 01-09-[address] JACKIE WALDEN MD Facility:[facility] Start: 01-09-2023 End: 01-09-[address] JACKIE WALDEN MD [facility] Start: 08-30-2022 End: 09-22-2022 ambulatory [facility]ADYS [facility]valle [facility] Start: 04-26-2021 End: 04-26-[address] JACKIE WALDEN MD [facility] Start: 12-02-2016 End: 12-03-2016 Ambulatory PHY WO ID REFERRING Facility:[facility] Procedures Date Procedure Procedure Detail Performing Clinician Start: 07-04-2023 PSA screening [facility] Payers Date Payer Category Payer Unknown [id number] 2021 Unknown [id number] 2010 Unknown [id number] 1960 Unknown [id number] 1960 Unknown [id number] 1960 Unknown [id number] 1960 Unknown [id number] Social History Date Type Detail Facility Start: 04-26-2021 Never smoked t obacco (finding) [facility] Smokeless tobacc o user within last 30 days [facility] Sex Assigned At [facility] Functional Status Date Assessment Result Facility 01-09-2023 Functional Status Awake, Resting [facility] 01-09-2023 Functional Status More than 8 hours [facility] Mental Status Date Assessment Result Facility 01-09-2023 Mental Status Orientation Oriented x 4 [facility] Evaluation + Plan note 01-09-2023 Note Date & Type Note Facility [facility] ADMISSION HISTORY AN D PHYSICIAL CHIEF COMPLAINT: HISTORY OF PRESENT ILLNESS: REVIEW OF SYSTEMS: ACTIVE PROBLEMS: (6) Elevated liver enzymes (3795384969) GERD (gastroesophageal reflux disease) (165773476) Heartburn (62763367) Hemorrhoids (692208577) Hepatitis (796447345) Sleep apnea (372658416) MEDICATIONS: Active Inpt Meds: None Active PRN Meds: None One Time Meds: None Active IV Meds: Lactated Ringers Infusion 1,000 mL (LR 1,000 mL) Start: 01/09/23 7:58:00 EDT, Rate: 50 mL/hr, 01/09/23 7:58:00 EDT ALLERGIES: (1) [facility] FAMILY HISTORY: SOCIAL HISTORY: PHYSICAL EXAM: VITALS: [id number](kg) 01/09 08:0436.1--[id number]/84875.0 24 Hr Tmax: 36.1 at 01/09 08:04 36 Hr Tmax: 36.1 at 01/09 08:04 Vital Signs are the last 5 in the past 48 hours. Weights display the last 5 within 7 days. Initial Wt: 01/09 100.0 kg 220 lb Current Wt: 01/09 100.0 kg 220 lb GENERAL: HEENT: CARDIOVASCULAR: RESPIRATORY: ABDOMEN: EXREMETIES: NEUROLOGICAL: PSYCHIATRIC: LABS: No 36hr Lab Data DIAGNOSTICS: IMPRESSION: PLAN: History and Physical Update I have examined the patient; reviewed the H&P and there are no changes to the H&P unless noted below. [facility] Hospital Discharge instructions 01-09-2023 Note Date & Type Note Facility 01-09-2023 Hospital Discharge instructions Patient Education 01/09/2023 09:49:27 9 - AO Minor Esophagogastroduodenoscopy (08/16) (CUSTOM) Esophagogastroduodenoscopy This is an endoscopic procedure (a procedure that uses a device like a flexible telescope) that allows your caregiver to view the upper stomach and small bowel. This test allows your caregiver to look at the esophagus. The esophagus carries food from your mouth to your stomach. They can also look at your duodenum. This is the first part of the small intestine that attaches to the stomach. This test is used to detect problems in the bowel such as ulcers and inflammation. MEANING OF TEST Your caregiver will go over the test results with you and discuss the importance and meaning of your results, as well as treatment options and the need for additional tests if necessary. OBTAINING THE TEST RESULTS Your caregiver s office will call you with the results of the test. POST SEDATION INSTRUCTIONS Rest at home today. Since your coordination may be impaired, be cautious on stairways, do not drive any vehicle or operate any heavy machinery, or use any sharp instruments for the remainder of the day. Do not drink any alcoholic beverages or make any major decisions for 24 hours. POST PROCEDURE INSTRUCTIONS Progress slowly with full liquids then resume previous diet and medications. Belching or passing of gas is to be expected. Notify the physician if you have severe chest pain, fever, or if difficulty when swallowing persists. 08/13/13 Custom 01/09/2023 09:49:24 Monitored Anesthesia Care, Care After Monitored Anesthesia Care, Care After These instructions provide you with information about caring for yourself after your procedure. Your health care provider may also give you more specific instructions. Your treatment has been planned according to current medical practices, but problems sometimes occur. Call your health care provider if you have any problems or questions after your procedure. What can I expect after the procedure? After your procedure, you may: Feel sleepy for several hours. Feel clumsy and have poor balance for several hours. Feel forgetful about what happened after the procedure. Have poor judgment for several hours. Feel nauseous or vomit. Have a sore throat if you had a breathing tube during the procedure. Follow these instructions at home: For at least 24 hours after the procedure: Have a responsible adult stay with you. It is important to have someone help care for you until you are awake and alert. Rest as needed. Do not: ?Participate in activities in which you could fall or become injured. ?Drive. ?Use heavy machinery. ?Drink alcohol. ?Take sleeping pills or medicines that cause drowsiness. ?Make important decisions or sign legal documents. ?Take care of children on your own. Eating and drinking Follow the diet that is recommended by your health care provider. If you vomit, drink water, juice, or soup when you can drink without vomiting. Make sure you have little or no nausea before eating solid foods. General instructions Take eiox-ezr-xizgvve and prescription medicines only as told by your health care provider. If you have sleep apnea, surgery and certain medicines can increase your risk for breathing problems. Follow instructions from your health care provider about wearing your sleep device: ?Anytime you are sleeping, including during daytime naps. ?While taking prescription pain medicines, sleeping medicines, or medicines that make you drowsy. If you smoke, do not smoke without supervision. Keep all follow-up visits as told by your health care provider. This is important. Contact a health care provider if: You keep feeling nauseous or you keep vomiting. You feel light-headed. You develop a rash. You have a fever. Get help right away if: You have trouble breathing. Summary For several hours after your procedure, you may feel sleepy and have poor judgment. Have a responsible adult stay with you for at least 24 hours or until you are awake and alert. This information is not intended to replace advice given to you by your health care provider. Make sure you discuss any questions you have with your health care provider. Document Released: 09/11/2016 Document Revised: 08/20/2018 Document Reviewed: 09/11/2016 SmartDocs ([employer]) Patient Education 2020 [employer]. Follow Up Care 12/07/2022 13:01:21 With:JACKIE WALDEN Address: [address] [address] [phone] Business (1) When: Unknown Comments:Follow-up with Primary Care Physician [facility] Summary of episode note 01-09-2023 Note Date & Type Note Facility 01-09-2023 Summary of episode note Discharge Instructions Thank you for allowing [facility] to assist you with your healthcare needs. The following is important discharge information regarding your hospital visit. Your Care Team DELMY MCKEON MD What to do next Follow Up Appointments Follow Up with JACKIE WALDEN When Why: Follow-up with Primary Care Physician Where: [address] [place] [address] [phone] Business (1) Allergies NKA Medications Please ask your primary doctor or pharmacist before taking any other medication not listed, including over the counter drugs, herbal medications, vitamins and or supplements as they may interact with your home medications. What How Much When Instructions Last Dose Unchanged carvedilol (carvedilol 3.125 mg oral tablet) 1 tab(s) by mouth Twice daily with meals Unchanged dutasteride (Avodart 0.5 mg oral capsule) 1 cap by mouth Once a day Unchanged enalapril (enalapril 20 mg oral tablet) 1 tab(s) by mouth Once a day Unchanged lansoprazole (lansoprazole 30 mg oral delayed release capsule) 1 cap by mouth Once a day Please take this list to your next doctor s visit. Bring all medications you take, including over the counter medications, herbals and other supplements with you to your doctor s visit. Patients and families are reminded to discard old lists and to update any records with all medication providers or retail pharmacies. Education Materials Esophagogastroduodenoscopy This is an endoscopic procedure (a procedure that uses a device like a flexible telescope) that allows your caregiver to view the upper stomach and small bowel. This test allows your caregiver to look at the esophagus. The esophagus carries food from your mouth to your stomach. They can also look at your duodenum. This is the first part of the small intestine that attaches to the stomach. This test is used to detect problems in the bowel such as ulcers and inflammation. MEANING OF TEST Your caregiver will go over the test results with you and discuss the importance and meaning of your results, as well as treatment options and the need for additional tests if necessary. OBTAINING THE TEST RESULTS Your caregiver s office will call you with the results of the test. POST SEDATION INSTRUCTIONS Rest at home today. Since your coordination may be impaired, be cautious on stairways, do not drive any vehicle or operate any heavy machinery, or use any sharp instruments for the remainder of the day. Do not drink any alcoholic beverages or make any major decisions for 24 hours. POST PROCEDURE INSTRUCTIONS Progress slowly with full liquids then resume previous diet and medications. Belching or passing of gas is to be expected. Notify the physician if you have severe chest pain, fever, or if difficulty when swallowing persists. 08/13/13 Custom Monitored Anesthesia Care, Care After These instructions provide you with information about caring for yourself after your procedure. Your health care provider may also give you more specific instructions. Your treatment has been planned according to current medical practices, but problems sometimes occur. Call your health care provider if you have any problems or questions after your procedure. What can I expect after the procedure? After your procedure, you may: Feel sleepy for several hours. Feel clumsy and have poor balance for several hours. Feel forgetful about what happened after the procedure. Have poor judgment for several hours. Feel nauseous or vomit. Have a sore throat if you had a breathing tube during the procedure. Follow these instructions at home: For at least 24 hours after the procedure: Have a responsible adult stay with you. It is important to have someone help care for you until you are awake and alert. Rest as needed. Do not: ? Participate in activities in which you could fall or become injured. ? Drive. ? Use heavy machinery. ? Drink alcohol. ? Take sleeping pills or medicines that cause drowsiness. ? Make important decisions or sign legal documents. ? Take care of children on your own. Eating and drinking Follow the diet that is recommended by your health care provider. If you vomit, drink water, juice, or soup when you can drink without vomiting. Make sure you have little or no nausea before eating solid foods. General instructions Take olrl-mpl-teuyfaa and prescription medicines only as told by your health care provider. If you have sleep apnea, surgery and certain medicines can increase your risk for breathing problems. Follow instructions from your health care provider about wearing your sleep device: ? Anytime you are sleeping, including during daytime naps. ? While taking prescription pain medicines, sleeping medicines, or medicines that make you drowsy. If you smoke, do not smoke without supervision. Keep all follow-up visits as told by your health care provider. This is important. Contact a health care provider if: You keep feeling nauseous or you keep vomiting. You feel light-headed. You develop a rash. You have a fever. Get help right away if: You have trouble breathing. Summary For several hours after your procedure, you may feel sleepy and have poor judgment. Have a responsible adult stay with you for at least 24 hours or until you are awake and alert. This information is not intended to replace advice given to you by your health care provider. Make sure you discuss any questions you have with your health care provider. Document Released: 09/11/2016 Document Revised: 08/20/2018 Document Reviewed: 09/11/2016 SmartDocs ([employer]) Patient Education 2020 [employer]. Additional Information VACCINATE! IT SAVES LIVES! Members of the community who have not yet received the COVID-19 vaccine and would like to receive it can visit one of [facility] vaccine clinics. There are many vaccine clinic locations within the [facility]. For locations and available times, please visit [email or web address].[email or web address]/. It is important to note that some COVID mobile vaccine clinics are held outdoors and may be canceled in rainy or stormy conditions. To learn more about pediatric vaccinations (ages 5-11), we invite you to visit the [facility] webpage. [email or web address]/[email or web address] -Fcfam-Nopsuetmdoe-Yyfpzywitv-Asked-Quest ions.html To learn more about the COVID-19 vaccine, we invite you to visit the CDC website for a list of frequently asked questions.https://www.cdc.gov/coronavirus /2019-ncov/vaccines/faq.html [facility] Patient Portal Access Instructions: Stay connected with your healthcare team and access your personal medical information anytime with the [facility] Patient Portal. Please follow the directions below to create your [facility] account: 1.Access the email account you provided upon registration to the hospital/physician office.2.Look for an invitation email from [facility].3.Open the email and access the invitation link: Accept Invitation to [facility].4.Fill in the required zhu to create your account. To access your account, visit [email or web address]. Click the blue button labeled Access Patient Portal and then log in with the username and password that you created in the steps above. You will be able to view your test results, lab results, a summary of your visits, upcoming appointments and more. There is also a convenient messaging option where you can send secure messages to your provider. In addition, you will have the ability to download any documents or summaries to your computer and/or send the information securely to a physician. Remember that your healthcare information is confidential, so carefully consider who you will allow to register on the [facility] Patient Portal for access to your information. You can also access the [facility] One[facility] Patient Portal on the [facility] randy. Simply click on Patient Portal and then log into your account. If you would like to receive a full copy of your medical records, please contact the [facility] Medical Records Department by calling [phone], Monday through Monday between 8 a.m. and 4:30 p.m. HOW TO SAFELY DISPOSE OF PRESCRIPTION MEDICATIONS Please use one of the following methods to safely dispose of your unused medications. 1.Use a drug disposal kit: the drug disposal pouch allows you to safely discard your old and unused drugs. Ask your nurse to give you one when you are discharged.2.Visit a local take-back location: Many local pharmacies and police departments have programs that collect old and unwanted prescription drugs. Call your local pharmacy or go to http://[facility].[employer]/1X3Yt7e to find one close to you.3.Make use of household items: Use cat litter or old coffee grounds to dispose medications if other options are not available. Mix your drugs with these household products, seal them in an airtight container and throw it into the garbage. Call [facility]: [phone] to be sure your drugs can be disposed of in this way. Some medicines may require a different approach.4.Never flush your medications down the toilet. IF YOU HAVE BEEN PRESCRIBED AN OPIOID FOR PAIN If you have been prescribed an opioid (such as hydrocodone, oxycodone or morphine), it is critical to understand the possible side effects and risks of opioid pain medications. Even when taken as directed, opioids can have several side effects including: Tolerance, meaning you might need to take more of a medication for the same pain relief. Nausea, vomiting and/or constipation. Sleepiness, dizziness, dry mouth, confusion, depression or itching. Physical dependence, meaning you have withdrawal symptoms when a medication is stopped, can develop within a few days. KNOW YOUR RESPONSIBILITIES It is important to know exactly how much and how often to take the opioid pain medications you are prescribed. Never take opioids in higher amounts or more often than prescribed. Do not combine opioids with alcohol or other drugs that cause drowsiness, such as benzodiazepines, also known as benzos, including diazepam and alprazolam, muscle relaxants or sleep aids. Never sell or share prescription opioids. This is illegal. Store opioids in a secure place and out of reach of others (including children, family, friends and visitors). The last page of this document has been signed and retained as a CHART COPY. Signatures Patient Education Materials 9 - AO Minor Esophagogastroduodenoscopy (08/16) (CUSTOM) Monitored Anesthesia Care, Care After Medication Leaflets My discharge plan and instructions have been reviewed and explained to me and I,TIM METZ understand my current condition and have read and understand these discharge instructions. I have received a written copy of the plan/instructions. If I have questions, I am aware that I should contact my doctor. 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 Mental status: at preoperative baseline, alert & oriented x 4. Respiratory function: lungs are clear to auscultation. Respiratory support: none. CV function: Normal rate. Cardiovascular support: none. Pain. Nausea status: denies nausea. Postoperative hydration status: within normal limits. Digitally Signed by LISSA ROWELL on 01/09/2023 09:43 AM [facility] Clinical Note 01-09-2023 Note Date & Type Note Facility 01-09-2023 Note [facility] ADMISSION HISTORY AND PHYSICIAL CHIEF COMPLAINT: HISTORY OF PRESENT ILLNESS: REVIEW OF SYSTEMS: ACTIVE PROBLEMS: (6) Elevated liver enzymes (3034410900) GERD (gastroesophageal reflux disease) (967813886) Heartburn (69878269) Hemorrhoids (306820588) Hepatitis (223784391) Sleep apnea (230325376) MEDICATIONS: Active Inpt Meds: None Active PRN Meds: None One Time Meds: None Active IV Meds: Lactated Ringers Infusion 1,000 mL (LR 1,000 mL) Start: 01/09/23 7:58:00 EDT, Rate: 50 mL/hr, 01/09/23 7:58:00 EDT ALLERGIES: (1) NKA FAMILY HISTORY: SOCIAL HISTORY: PHYSICAL EXAM: VITALS: UceotjQrniYGWsiqzTNFuP8WHV2QbsjMp(k g) 01/09 08:0436.1--[id number]/02779.0 24 Hr Tmax: 36.1 at 01/09 08:04 36 Hr Tmax: 36.1 at 01/09 08:04 Vital Signs are the last 5 in the past 48 hours. Weights display the last 5 within 7 days. Initial Wt: 01/09 100.0 kg 220 lb Current Wt: 01/09 100.0 kg 220 lb GENERAL: HEENT: CARDIOVASCULAR: RESPIRATORY: ABDOMEN: EXREMETIES: NEUROLOGICAL: PSYCHIATRIC: LABS: No 36hr Lab Data DIAGNOSTICS: IMPRESSION: PLAN: History and Physical Update I have examined the patient; reviewed the H&P and there are no changes to the H&P unless noted below. Digitally Signed by JACKIE WALDEN MD on 01/09/2023 09:17 AM [facility] Anesthesiology Consult note 01-09-2023 Note Date & Type Note Facility 01-09-2023 Anesthesiology Consult note Patient: TIM METZ Age: 62 years Sex: Male : 1960 Associated Diagnoses: None Author: LISSA ROWELL Preoperative Information Time of last food or liquid consumption: 01/09/2023 00:00:00 Anesthesia history Patient's history: negative. Family's history: negative. Health Status Allergies: Allergic Reactions (Selected) NKA, Allergies (1) ActiveReaction NKANone Documented Current medications: (Selected) Inpatient Medications Ordered LR 1,000 mL: 50 mL/hr, Intravenous Documented Medications Documented Avodart 0.5 mg oral capsule: 0.5 mg, 1 cap(s), Oral, qDay, 0 Refill(s) carvedilol 3.125 mg oral tablet: 3.125 mg, 1 tab(s), Oral, BIDM, 0 Refill(s) enalapril 20 mg oral tablet: 20 mg, 1 tab(s), Oral, qDay, 0 Refill(s) lansoprazole 30 mg oral delayed release capsule: 30 mg, 1 cap(s), Oral, qDay, 0 Refill(s), Medications (1) Active Scheduled: (0) Continuous: (1) Lactated Ringers 1,000 mL 1,000 mL, Intravenous, 50 mL/hr PRN: (0) Problem list: Active Problems (6) Elevated liver enzymes GERD (gastroesophageal reflux disease) Heartburn Hemorrhoids Hepatitis Sleep apnea Histories Past Medical History: No active or resolved past medical history items have been selected or recorded., HTN, VALDEZ, esophageal varices Family History: COPD Father Diabetes Brother Procedure history: Esophagogastroduodenoscopy ([id number]) on 04/26/2021 at 61 Years. Esophagogastroduodenoscopy and banding of esophageal varices ([id number]) on 08/02/2019 at 59 Years. Esophagogastroduodenoscopy (202915825) on 07/22/2019 at 59 Years. Esophagogastroduodenoscopy (286484218) in the month of 06/2019 at 59 Years. Excision of Calix cyst of knee (5702632707). Comments: 07/18/2019 14:00 Lucy Callahan RN right posterior knee Biopsy of prostate (718808709). History of cholecystectomy (0823319080). Arthroscopy of knee joint (803829274). Comments: 08/02/2019 7:59 Lucy Callahan RN left Social History Social & Psychosocial Habits Alcohol 01/09/2023 Use: Past Substance Abuse 01/09/2023 Use: Never Tobacco 01/09/2023 Tobacco Use: Never (less than 100 in l Type: Oral (Snuff, Chew) Smokeless tobacco use: Smokeless tobacco user wi Home/Environment 01/09/2023 Domestic Concerns None Living situation: Home/Independent Lives In Single level home Current Home Treatments CPAP Spouse Name gregoria Marital Status of Patient if Patient Independent Adult: Nutrition/Health 01/09/2023 Type of diet: Regular Appetite Excellent Eating Difficulties None Caffeine intake amount: 1 lg coffee and occ pop daily . Physical Examination Vital Signs 01/09/2023 8:04 EDT Temperature Temporal Artery 36.1 DegC Peripheral Pulse Rate 57 bpm LOW Respiratory Rate 17 br/min Systolic Blood Pressure Non-Invasive 148 mmHg HI Diastolic Blood Pressure Non-Invasive 92 mmHg HI Vital Signs(last 24 hrs) Last Charted Resp Rate 17 br/min (JAN 09 08:04) SBPH 148mmHg (JAN 09 08:04) DBPH 92mmHg (JAN 09 08:04) BMI31.63 (JAN 09 08:04) Measurements from flowsheet : Measurements 01/09/2023 8:04 EDT Height 177.8 cm Admission Weight 100 kg Weight Method Actual [place] Body Weight 73.00 kg BSA Admission 2.18 Body Mass Index 31.63 kg/m2 General: Alert and oriented. Airway: Normal temporomandibular joint mobility. Mallampati classification: II (soft palate, fauces, uvula visible). Head: Normocephalic. Dentition Evaluation: Intact. Neck: Supple. Respiratory: Lungs are clear to auscultation. Cardiovascular: Normal rate. Heart Sounds: Normal. Gastrointestinal: Soft. Musculoskeletal Normal range of motion. Integumentary: Intact. Neurologic: Alert. Review / Management Results review: No qualifying data available , Lab results 01/09/2023 8:04 EDT Designated Person #1 We May Share [facility] gregoria [phone] Designated Person #1 Relationship Spouse Height 177.8 cm Admission Weight 100 kg Weight Method Actual [place] Body Weight 73.00 kg BSA Admission 2.18 Body Mass Index 31.63 kg/m2 Temperature Temporal Artery 36.1 DegC Peripheral Pulse Rate 57 bpm LOW Respiratory Rate 17 br/min Systolic Blood Pressure Non-Invasive 148 mmHg HI Diastolic Blood Pressure Non-Invasive 92 mmHg HI Oxygen Saturation 97 % Status N/A Sensory Deficits None Infectious Disease Symptoms Cough Infectious Disease Recent Exposure No Alcohol and Drug Use No Employee of Institutional Living No Health Care Employee No History of Exposure to TB No History of Positive Chest X-Ray for TB No History of Positive TB Skin Test No Homeless No Known Immunosuppression No Recent Immigrant No Resident of Institutional Living No Bloody Sputum No Fatigue No Fever No Loss of Appetite No Night Sweats No Persistent Cough > 3 Weeks No Weight Loss No Barriers to Learning None evident Teaching Method Explanation, Printed materials Preferred Spoken Language Beninese Preferred Written Language Beninese Information Given by Patient Patient's Current Physicians Patient's Current Physicians Discharge To, Anticipated Home with family care Prev Test Positive/Diagnosis w/COVID-19 Yes Previous COVID-19 Positive Date 2021 Current Quarantine/Isolated any Illness No Any Contact with Sick Animals/Birds No Traveled Anywhere in Last 30 Days No N/A Personal Devices, Patient Valuables None Admission Note-Nursing Procedure/Therapy Intake . Assessment and Plan [place] [employer] Anesthesiologists (ASA) physical status classification: Class III. Anesthetic Preoperative Plan Premedication: None. Anesthetic technique: MAC. Induction: intravenously. Postoperative pain management: Per surgeon. Risks discussed: nausea, vomiting, headache, sore throat, dental injury, hypotension, allergic reaction, serious complications. Informed consent: signed by patient. Digitally Signed by LISSA ROWELL on 01/09/2023 08:13 AM [facility] Evaluation + Plan note 04-26-2021 Note Date & Type Note Facility [facility] ADMISSION HISTORY A [place] PHYSICIAL CHIEF COMPLAINT: HISTORY OF PRESENT ILLNESS: REVIEW OF SYSTEMS: ACTIVE PROBLEMS: (6) Elevated liver enzymes (7264190706) GERD (gastroesophageal reflux disease) (033286239) Heartburn (68122336) Hemorrhoids (775516349) Hepatitis (657123022) Sleep apnea (724130306) MEDICATIONS: Active Inpt Meds: None Active PRN Meds: None One Time Meds: None Active IV Meds: Lactated Ringers Infusion 1,000 mL (LR 1,000 mL) Start: 04/26/21 7:44:00 EST, Rate: 50 mL/hr ALLERGIES: (1) NKA FAMILY HISTORY: SOCIAL HISTORY: PHYSICAL EXAM: VITALS: MqbbgnQjbqJBYwltoKLRqK9JMM5UdwaSa(kg) 04/26 07:2836.2119/47549129AG14/47440.3 24 Hr Tmax: 36.2 at 04/26 07:28 36 Hr Tmax: 36.2 at 04/26 07:28 Vital Signs are the last 5 in the past 48 hours. Weights display the last 5 within 7 days. Initial Wt: 04/26 102.3 kg 225 lb Current Wt: 04/26 102.3 kg 225 lb GENERAL: HEENT: CARDIOVASCULAR: RESPIRATORY: ABDOMEN: EXREMETIES: NEUROLOGICAL: PSYCHIATRIC: LABS: No 36hr Lab Data DIAGNOSTICS: IMPRESSION: PLAN: History and Physical Update I have examined the patient; reviewed the H&P and there are no changes to the H&P unless noted below. [facility] Hospital Discharge instructions 04-26-2021 Note Date & Type Note Facility 04-26-2021 Hospital Discharg e instructions Patient Education 04/26/2021 09:05:02 Upper Endoscopy, Adult, Care After Upper Endoscopy, Adult, Care After This sheet gives you information about how to care for yourself after your procedure. Your health care provider may also give you more specific instructions. If you have problems or questions, contact your health care provider. What can I expect after the procedure? After the procedure, it is common to have: A sore throat. Mild stomach pain or discomfort. Bloating. Nausea. Follow these instructions at home: Follow instructions from your health care provider about what to eat or drink after your procedure. Return to your normal activities as told by your health care provider. Ask your health care provider what activities are safe for you. Take uhsh-gnv-oxaazlv and prescription medicines only as told by your health care provider. Do not drive for 24 hours if you were given a sedative during your procedure. Keep all follow-up visits as told by your health care provider. This is important. Contact a health care provider if you have: A sore throat that lasts longer than one day. Trouble swallowing. Get help right away if: You vomit blood or your vomit looks like coffee grounds. You have: ?A fever. ?Bloody, black, or tarry stools. ?A severe sore throat or you cannot swallow. ?Difficulty breathing. ?Severe pain in your chest or abdomen. Summary After the procedure, it is common to have a sore throat, mild stomach discomfort, bloating, and nausea. Do not drive for 24 hours if you were given a sedative during the procedure. Follow instructions from your health care provider about what to eat or drink after your procedure. Return to your normal activities as told by your health care provider. This information is not intended to replace advice given to you by your health care provider. Make sure you discuss any questions you have with your health care provider. Document Released: 11/20/2012 Document Revised: 11/13/2018 Document Reviewed: 10/22/2018 [employer] ([employer]) Patient Education 2020 [employer]. 04/26/2021 09:04:18 Monitored Anesthesia Care, Care After Monitored Anesthesia Care, Care After These instructions provide you with information about caring for yourself after your procedure. Your health care provider may also give you more specific instructions. Your treatment has been planned according to current medical practices, but problems sometimes occur. Call your health care provider if you have any problems or questions after your procedure. What can I expect after the procedure? After your procedure, you may: Feel sleepy for several hours. Feel clumsy and have poor balance for several hours. Feel forgetful about what happened after the procedure. Have poor judgment for several hours. Feel nauseous or vomit. Have a sore throat if you had a breathing tube during the procedure. Follow these instructions at home: For at least 24 hours after the procedure: Have a responsible adult stay with you. It is important to have someone help care for you until you are awake and alert. Rest as needed. Do not: ?Participate in activities in which you could fall or become injured. ?Drive. ?Use heavy machinery. ?Drink alcohol. ?Take sleeping pills or medicines that cause drowsiness. ?Make important decisions or sign legal documents. ?Take care of children on your own. Eating and drinking Follow the diet that is recommended by your health care provider. If you vomit, drink water, juice, or soup when you can drink without vomiting. Make sure you have little or no nausea before eating solid foods. General instructions Take njwk-sih-qtujrbb and prescription medicines only as told by your health care provider. If you have sleep apnea, surgery and certain medicines can increase your risk for breathing problems. Follow instructions from your health care provider about wearing your sleep device: ?Anytime you are sleeping, including during daytime naps. ?While taking prescription pain medicines, sleeping medicines, or medicines that make you drowsy. If you smoke, do not smoke without supervision. Keep all follow-up visits as told by your health care provider. This is important. Contact a health care provider if: You keep feeling nauseous or you keep vomiting. You feel light-headed. You develop a rash. You have a fever. Get help right away if: You have trouble breathing. Summary For several hours after your procedure, you may feel sleepy and have poor judgment. Have a responsible adult stay with you for at least 24 hours or until you are awake and alert. This information is not intended to replace advice given to you by your health care provider. Make sure you discuss any questions you have with your health care provider. Document Released: 09/11/2016 Document Revised: 08/20/2018 Document Reviewed: 09/11/2016 [employer] ([employer]) Patient Education 2020 [employer]. Follow Up Care 03/23/2021 15:18:16 With:JACKIE WALDEN MD Address: [phone] When: Unknown Comments:Follow-up as needed [facility] Hospital course Narrative Note Date & Type Note Facility Hospital course Narrative No data available for this section [facility] Summary Purpose Family History No Family History Records FoundNo Family History Records Found No data available for this section No Family History Records FoundNo Family History Records Found Advance Directives No Advanced Directives Records FoundNo Advanced Directives Records FoundNo Advanced Directives Records FoundNo Advanced Directives Records Found Additional Source Comments (unrecognized sect ion and content) No Status Records FoundNo Status Records FoundNo Status Records FoundNo Status Records Found INFORMATION SOURCE (unrecogn ized section and content) DATE CREATED AUTHOR AUTHOR'S ORGANIZ ATION 07/03/2021 [facility] DATE CREATED AUTHOR AUTHOR'S ORGANIZ ATION 01/11/2023 [facility] ([place]) DATE CREATED AUTHOR AUTHOR'S MARÍA ATION 07/05/2023 [facility] Patient Care team informatio n (unrecognized section and content) Care Team Personnel Name: DELMY MCKEON MD Member Role: Primary Care Physician Address: Address: [address] [place] [address] [address] [place] [address]- Care Team Related Persons Name: GREGORIA EMTZ Address: Home [address] [place] [address] FOR RECORDS PERTAINING TO PATIENTS WHO ARE OR HAVE BEEN ENROLLED IN A CHEMICAL DEPENDENCY/SUBSTANCEABUSE PROGRAM, SOME INFORMATION MAY BE OMITTED. This clinical summary was aggregated from multiple sources. Caution should be exercised in using it in the provision of clinical care. This summary normalizes information from multiple sources, and as a consequence, information in this document may materially change the coding, format and clinical context of patient data. In addition, data may be omitted in some cases. CLINICAL DECISIONS SHOULD BE BASED ON THE PRIMARY CLINICAL RECORDS. [employer] provides no warranty or guarantee of the accuracy or completeness of information in this document.
== END | disposition home or self-care (01) ==
PROVIDERS: PCP Internal Medicine; Referring Provider Internal Medicine Gastroenterology; Visit Provider Internal Medicine Gastroenterology
DX: K74.60 Unspecified cirrhosis of liver (principal)
CPT/HCPCS: 76705

== ENCOUNTER → 2023-10-25 | Outpatient (CLI) | payer OTHER, SELFPAY ==
--- NOTE | 2023-10-25 18:52 | CT_ITS ---
STUDY: CT SOFT TISSUE NECK WITH CONTRAST REASON FOR EXAM: Male, 63 years old. Submandibular lymphadenopathy RADIATION DOSAGE (If Supplied By Facility): CTDIvol = ( 17.58 ) mGy, DLP = ( 544.62 ) mGycm TECHNIQUE: The patient was scanned in a multi-detector CT scanner. High resolution transaxial imaging was performed following intravenous administration of [id number]. Sagittal and coronal images were reconstructed. Individualized dose optimization techniques were used for this CT. COMPARISON: None. FINDINGS: There is a nonenhancing solid mass in the superficial lobe of the left parotid gland measuring approximately 1.6 x 2.6 x 2.8 cm of uncertain etiology possibly representing a lymphoepithelial cyst or necrotic lymph node. Neoplasm less likely but not entirely excluded.. Normal bilateral purification supervisor spaces. Normal bilateral parapharyngeal spaces. Normal bilateral carotid spaces. Normal bilateral sublingual and submandibular glands and spaces. Normal visualized nasopharynx. Normal retropharyngeal space. Normal perivertebral space. Normal visualized bilateral faucial tonsils. The visualized tongue, tongue base and oropharynx are normal. The visualized cervical lymph nodes (levels I-) are within normal size limits, and maintain normal morphology. There is no demonstrated solid or cystic mass lesion. There is no abnormal contrast enhancement. Normal epiglottis, bilateral vallecula and hypopharynx. The pre-epiglottic and paraglottic adipose spaces are normal. Normal visualized bilateral piriform sinuses, aryepiglottic folds, vocal cords, and arytenoid-cricoid articulations. Normal subglottic trachea. Normal bilateral lobes of the thyroid gland. Normal visualized pulmonary apices. Normal visualized paranasal sinuses. Cervical spine demonstrates mild spondylosis.. CT/Soft Tissue Neck WITH Contrast IMPRESSION: Nonenhancing left parotid mass of indeterminate etiology possibly lymphoepithelial cyst or necrotic node. Neoplasm not entirely excluded. Clinical correlation recommended. Electronically Signed: Garfield Villegas MD at 20:23 EDT ,
[2023-10-25 19:21] LABS: CREATININE FINGERSTICK 1.2 mg/dL (0.70-1.30); EGFR FINGERSTICK > 60.0000 mL/min (>60)
== END | disposition home or self-care (01) ==
LOC: CT 18:51
PROVIDERS: PCP Internal Medicine; Referring Provider Internal Medicine; Visit Provider Internal Medicine
DX: Z01.812 Encounter for preprocedural laboratory examination (principal); R59.0 Localized enlarged lymph nodes
CPT/HCPCS: 70491; Q9967

== ENCOUNTER → 2023-11-15 | Outpatient (CLI) | payer OTHER, SELFPAY ==
--- NOTE | 2023-11-15 | IMM_PTH ---
PATIENT: TIM METZ LOC: LAB U#:[id number] AGE/SX: 63/M ROOM: RE11/15/[address]: Dr. Fabian Forrester MD : 1960 BED: DIS: 11/15/2023 SPEC #: [id number] RECD: 11/16/23 12:05 STATUS: DINORAH REQ #: [id number] DELIA: 11/15/23 00:[address]: Fabian Forrester DEPT: IMMUNOHISTOCHEMISTRY RECD BY: Hermann Pedroza ENTERED: 11/16/23 12:06 SP TYPE: IMMUNO OTHR DR: Dr. Moni Shine MD Tissues: Parotid gland, NOS Procedures: CD45 (add) KI-67 (add) P53 (add) Vimentin (add) Pankeratin (initial) S-100 (add) PHYSICIAN & INSTITUTION [place] [address] SPECIMEN INFORMATION: Tissue Source: Left parotid mass Clinical Info: Left parotid mass Specimen Number: [id number] CPT code: 73293,53848w6 METHODOLOGY: Deparaffinized sections of prefer/formalin-fixed tissue or PAP/DQ stained slides are incubated with monoclonal/polyclonal antibodies/oligonucleotide probes. Localization is made via biotin free immunoperoxidase method. Appropriate controls are performed and reacted as expected. Results on target cell population are indicated in the following table: RESULTS: ANTIBODY / CLONE RESULT AE1-3 (AE1/AE3/PCK26) positive CD45 (RP2/18) negative Vimentin (V9) negative S-100 (4C4.9) negative P53 (DO-7) negative Ki-67 (30-9) negative These tests were developed and their performance characteristics determined by [facility]. They may not have been cleared or approved by the U.S. Food and Drug Administration. The FDA has determined that such clearance or approval is not necessary. The above immunohistochemical/dualISH markers are ordered and reviewed by the Pathologist. INTERPRETATION: Fine needle aspiration, left parotid mass: Rare degenerating epithelial cells. ANNA/ 11/17/2023
--- NOTE | 2023-11-15 09:45 | ASPOS_PTH ---
PATIENT: TIM METZ LOC: [facility] U#:[id number] AGE/SX: 63/M ROOM: RE11/15/[address]: Dr. Fabian Forrester MD : 1960 BED: DIS: 11/15/2023 SPEC #: [id number] RECD: 11/15/23 10:45 STATUS: DINORAH REVandana #: [id number] DELIA: 11/15/23 09:[address]: Fabian Forrester DEPT: CYTOLOGY RECD BY: Karol Carmona ENTERED: 11/15/23 10:56 SP TYPE: ASP HERE OTHR DR: Dr. Moni Shine MD Tissues: Parotid gland, NOS Procedures: Surgery Specimen Level IV Cytology Other Fine Needle Asp on Site HEADER OPERATION: Fine needle aspiration left parotid mass PRE-OP DIAGNOSIS: Left parotid mass TISSUE SUBMITTED: Smears and fluid for cytology DIAGNOSIS CYTOLOGY Fine needle aspiration, left parotid mass (smears and cellblock): Degenerating cellular debris and amorphous proteinaceous material. No evidence of malignancy. See comment. /mr 11/16/2023 COMMENT The specimen contains degenerating epithelial cells and abundant proteinaceous material. Approximately 3.0cc of fluid was aspirated from the lesion which resulted in a near resolution of mass in the area. Immunohistochemistry ([id number]) supports the above diagnosis. Case has been reviewed in consultation with Dr. Anthony who concurs with the above diagnosis. IDC:SJ A fine needle aspiration was performed and the specimen is evaluated at the time of FNA by Dr. Strong. Immediate Evaluation = Degenerating cellular debris and proteinaceous material. No evidence of malignancy. CYTOLOGY STUDY Slides are reviewed. CYTOLOGY GROSS Received is 3.0 ml of milky-white labeled with the patient's name, and designated Left parotid mass. 5 imprints and 2 paps are made from the submitted fluid and the rest is added to CytoLyt for cell block preparation. Submitted for cytology study. / 11/15/2023 TC:5 CPT: 59504,75295,64375,88348
== END | disposition home or self-care (01) ==
PROVIDERS: PCP Internal Medicine; Referring Provider Otolaryngology; Visit Provider Otolaryngology
DX: R22.0 Localized swelling, mass and lump, head (principal)
CPT/HCPCS: 10021; 88161; 88305; 88341; 88342

== ENCOUNTER 2024-01-15 10:21 | Emergency (ER) | payer OTHER, SELFPAY ==
[2024-01-15 10:22] VITALS: BP 144/90; PULSE 77; RESP 19; TEMP 36.2; O2SAT 97; BMI 32.8
[2024-01-15 11:24] VITALS: BP 135/85; PULSE 69; RESP 16; TEMP 37.3; O2SAT 99
--- NOTE | 2024-01-15 11:53 | EX.ED.GUMALE ---
HPI History of Present Illness Chief Complaint: Complaint Informant: patient Narrative Narrative: Patient has had a urinary catheter in for postoperative urinary retention for about a week. He states yesterday started leaking urine around the catheter and having some pain at the tip of the penis where the catheter is, and the urine is darker than normal. He denies abdominal pain, low back pain, fevers and chills acutely with any of this. He states he has seen urine in the tubing and bag at all times and denies the appearance of an obstruction. He has an appointment with urology in 3 days, he has seen urology before for enlarged prostate issues. He is on no anticoagulants. [facility] Medical History Cirrhosis Cholelithiasis with chronic cholecystitis Elevated PSA Cholelithiasis Hyperglycemia Elevated liver enzymes Hypertension Sleep apnea Hemorrhoids Heartburn Home Medications ?Medication ?Instructions ?Recorded ?Last Taken ?Type lansoprazole 30 mg capsule,delayed 30 mg PO DAILY 06/10/15 05/08/19 08:00 History release dutasteride 0.5 mg capsule 0.5 mg PO DAILY 04/18/19 Unknown History enalapril maleate 20 mg tablet 40 mg PO DAILY 04/18/19 05/08/19 08:00 History hydrochlorothiazide 12.5 mg tablet 12.5 mg PO DAILY 04/18/19 Unknown History ciprofloxacin HCl 500 mg tablet 500 mg PO BID #14 TABLETS 01/15/24 Unknown Rx Allergy/AdvReac Type Severity Reaction Status Date / Time No Known Allergies Allergy Verified 05/15/19 13:42 Family History Brother Diabetes Hypertension Sister Hypercholesterolemia Surgical History History of liver biopsy History of cholecystectomy History of prostate biopsy history bakers cyst right posterior knee History of left knee surgery Social History Smoking Status: Never smoker alcohol intake: current alcohol intake frequency: a few times a month substance use type: does not use ROS ROS ED Constitutional Constitutional ED: Denies chills or fever(s) Gastrointestinal Gastrointestinal: Denies abdominal pain Genitourinary Genitourinary ED: Reports as per HPI Musculoskeletal Musculoskeletal: Denies back pain Neurologic Neurologic: Denies paresthesias or weakness EXAM Physical Exam Const Vital Signs: 01/15/24 10:22 01/15/24 10:22 01/15/24 11:24 Temperature 97.1 F L 97.1 F L 99.2 F H Temperature Source Temporal Temporal Oral Pulse Rate 77 77 69 Respiratory Rate 19 H 19 H 16 Blood Pressure 144/90 H 144/90 H 135/85 H Blood Pressure Mean 108 108 101 Pulse Ox 97 97 99 Oxygen Delivery Method Room Air Room Air Room Air 01/15/24 12:22 01/15/24 13:16 Temperature 99.2 F H Temperature Source Pulse Rate 65 68 Respiratory Rate 16 16 Blood Pressure 163/99 H 165/89 H Blood Pressure Mean 120 114 Pulse Ox 99 99 Oxygen Delivery Method Room Air Positive well nourished and well developed General Appearance ED: well developed and NAD Neck supple Resp normal respiratory effort GI non-tender and non-distended Auscultation: normoactive bowel sounds Palpation: soft no CVA tenderness Narrative: Tyler catheter in place, penis is normal-appearing, scrotum and testicles are nontender. There is no active leaking around the catheter but his underwear is wet as if it occurred recently. No blood. There is no sign of erythema around the urethral meatus or bleeding. There is dark yellow urine within the Tyler catheter in the bag without anything that looks like blood clots. There may be a little bit of sediment present. Back/Spine Back/Spine Narrative: FROM throughout back. Extremity normal to inspection General Extremety ED: Negative for edema General Extremity: Negative for edema Neuro oriented x3, CN's II-XII intact bilaterally, no focal motor deficits, no sensory deficits noted and gait normal MDM MDM MDM Narrative Medical decision making narrative: Performed urinalysis and send a culture, it is positive for infection indicators but without a lot of pyuria, there are rare bacteria. We irrigated his catheter to pull out any sediment that may still be present and rule out obstruction, this was done uneventfully and postvoid residual was basically negligible. He has no other systemic symptoms I do not think he needs any other emergent testing right now. He is going to see urology in a couple of days, and since he had urinary retention and trouble getting catheter in, I think that leaving the catheter in until then is reasonable. Given this I think that it is going to be reasonable to treat him as if the infection is causing this, culture sent, started him on Cipro we will give him a prescription he is comfortable with that plan. Lab Data Attestation: I reviewed the patient's lab results. Labs: Laboratory Results - last 24 hr 01/15/24 12:26 Urine Color Yellow Urine Clarity Clear Urine pH 6.0 Ur Specific [place] 1.015 Urine Protein 100 H Urine Glucose (UA) Normal Urine Ketones Negative Urine Occult Blood 250 H Urine Nitrite Positive H Urine Bilirubin Negative Urine Urobilinogen 1 H Ur Leukocyte Esterase 100 H Urine RBC 10-25 SEEN Urine WBC 0-5 SEEN Ur Squamous Epith Cells 0 SEEN Urine Bacteria RARE Urine Mucus 0 SEEN Discharge Plan Triage Chief Complaint: Complaint ED Provider: lEliott Ramírez Dx/Rx/DC Orders Clinical Impression: Complicated UTI (urinary tract infection) Instructions: UTIs Understanding Prescriptions: New ciprofloxacin HCl 500 mg tablet 500 mg PO BID Qty: 14 0RF No Action hydrochlorothiazide 12.5 mg tablet 12.5 mg PO DAILY dutasteride 0.5 mg capsule 0.5 mg PO DAILY lansoprazole 30 MG capsule 30 mg PO DAILY enalapril maleate 20 mg tablet 40 mg PO DAILY Primary Care Provider: Moni Shine Referrals: Moni Shine MD [Primary Care Provider] - Perfecto Haskins MD [Med Staff - Active Staff] - Keep Gayatri appointment Print Language: Azeri Disposition Disposition: Home, Self Care Discharge Date/Time: 01/15/24 13:24
[2024-01-15 12:22] VITALS: BP 163/99; PULSE 65; RESP 16; O2SAT 99
[2024-01-15 12:31] LABS: Mucous, Urine 0 SEEN /hpf (<or=2+); Squamous Epithelial Cells - UA 0 SEEN /hpf (0-5)
[2024-01-15 12:42] LABS: Glucose, Dipstick Normal (Normal); Ketone-Dipstick Negative (Negative); Leukocyte Esterase-Dipstick 100 /ul (Negative); Nitrite-Dipstick Positive (Negative); Occult Blood-Urine 250 /ul (Negative); Protein-Dipstick 100 mg/dl (Negative); Specific Gravity, Urine 1.015 (1.002-1.030); Urine Bilirubin Dipstick Negative (Negative); Urine Urobilinogen 1 mg/dl (Normal)
[2024-01-15 12:46] LABS: Color, Urine Yellow (Yellow); Urine Clarity Clear (Clear)
[2024-01-15 12:53] LABS: Red Blood Cells-Urine 10-25 SEEN /hpf (0-5); White Blood Cells 0-5 SEEN /hpf (0-5)
[2024-01-15 12:56] LABS: Bacteria RARE /hpf (None Seen)
[2024-01-15 13:16] VITALS: BP 165/89; PULSE 68; RESP 16; TEMP 37.3; O2SAT 99
[2024-01-15] MEDS: Ciprofloxacin 500 MG Tablet PO (13:24)
== END 2024-01-15 13:24 | disposition home or self-care (01) ==
PROVIDERS: Emergency Provider Emergency Medicine; PCP Internal Medicine; Visit Provider Emergency Medicine
DX: N39.0 Urinary tract infection, site not specified (principal); I10 Essential (primary) hypertension; R33.8 Other retention of urine; T83.592A Infection and inflammatory reaction due to indwelling ureteral stent, initial encounter; T83.84XA Pain due to genitourinary prosthetic devices, implants and grafts, initial encounter; Y73.8 Miscellaneous gastroenterology and urology devices associated with adverse incidents, not elsewhere classified
CPT/HCPCS: 81001; 87086; 87088; 87186; 99282

== ENCOUNTER → 2024-02-20 | Outpatient (CLI) | payer OTHER, SELFPAY ==
[2024-02-20 12:57] LABS: PSA,Total- Diagnostic 3.46 ng/mL (0.0-4.0)
== END | disposition home or self-care (01) ==
LOC: LAB 11:10
PROVIDERS: PCP Internal Medicine; Referring Provider Urology; Visit Provider Urology
DX: N40.1 Benign prostatic hyperplasia with lower urinary tract symptoms (principal)
CPT/HCPCS: 36415; 84153

== ENCOUNTER → 2024-03-15 | Outpatient (CLI) | payer OTHER, SELFPAY ==
--- NOTE | 2024-03-15 15:10 | RAD_ITS ---
STUDY: X-RAY - CERVICAL SPINE REASON FOR EXAM: Male, 64 years old. Neck pain and headache TECHNIQUE: 6 view(s) of the cervical spine were obtained. COMPARISON: None FINDINGS: Normal anterior atlantoaxial articulation. Normal odontoid process. Normal cervical lordosis. Normal vertebral bodies and endplates. Mild disc space narrowing throughout the C-spine. There is multi-level osseous foraminal stenosis. The soft tissue structures are unremarkable. There is no demonstrated fracture of the cervical spine. RAD/Cerv Spine 4 or 5 Views IMPRESSION: Age consistent degenerative changes, no acute findings Electronically Signed: Avelino Shetty MD at 14:19 EDT ,
--- NOTE | 2024-03-15 15:10 | RAD_ITS ---
EXAM: XR CHEST, 2 VIEWS CLINICAL INDICATION: BASE OF NECK PAIN TECHNIQUE: Frontal and lateral views of the chest. COMPARISON: No relevant prior studies available. FINDINGS: LUNGS AND PLEURAL SPACES: Unremarkable. No consolidation or edema. No pneumothorax. No effusion. HEART: Unremarkable. Cardiac silhouette not enlarged. MEDIASTINUM: Central airways and mediastinal contour are unremarkable. BONES/JOINTS: Unremarkable. No acute fracture. SOFT TISSUES: Unremarkable. RAD/Chest PA and Lateral IMPRESSION: No radiographic evidence of acute cardiopulmonary disease. Electronically Signed: Kris Burnett MD at 21:07 EDT ,
--- NOTE | 2024-03-15 15:25 | RAD_ITS ---
STUDY: X-RAY - RIGHT SCAPULA REASON FOR EXAM: Male, 64 years old. posterior scapular pain TECHNIQUE: 2 view(s) of the scapula were obtained. COMPARISON: None. FINDINGS: Normal scapula, including the osseous glenoid rim, acromion, scapular neck, spine, coracoid process, and visualized body. Normal glenohumeral articulation. There is degenerative arthrosis of the acromioclavicular joint without inferior osseous spur formation. Normal visualized humeral head. Normal visualized pulmonary apex. RAD/Scapula IMPRESSION: No demonstrated fracture or suspicious osseous lesion. However, plain film evaluation of the scapula is not optimal. If there is strong clinical suspicion of a fracture, a limited CT scan of the right shoulder and scapula would be recommended. AC joint arthrosis Electronically Signed: Avelino Shetty MD at 14:17 EDT ,
== END | disposition home or self-care (01) ==
LOC: RAD 14:41
PROVIDERS: PCP Internal Medicine; Referring Provider Anesthesiology; Visit Provider Anesthesiology
DX: M25.511 Pain in right shoulder (principal); M54.2 Cervicalgia
CPT/HCPCS: 71046; 72050; 73010

== ENCOUNTER → 2024-03-20 | Outpatient (CLI) | payer OTHER, SELFPAY ==
[2024-03-20 15:20] LABS: Hematocrit 45.4 % (40-54); Hemoglobin 15.3 g/dL (13.0-16.5); Mean Corp Hgb Conc 33.7 g/dL (32-36); Mean Corpuscular Hgb 31.9 pg (27.0-32.0); Mean Corpuscular Volume 94.6 fL (80-94); Mean Platelet Vol. 11.7 fl (6.2-12.0); Platelet Count 111 K/mm3 (150-450); RBC Distribution Width CV 14.9 % (11.6-14.6); RBC Distribution Width SD 52.4 fl (35.1-43.9)
[2024-03-20 15:31] LABS: International Normalized Ratio 1.1; Prothrombin Time (Protime)PT. 14.3 SECONDS (11.7-14.9)
[2024-03-20 15:35] LABS: AST(SGOT) 60 U/L (15-37); Alanine Aminotransfer ALT/SGPT 77 U/L (16-61); Albumin, Serum 3.9 g/dL (3.2-5.0); Alkaline Phosphatase 77 U/L (45-117); Anion Gap 6 (5-15); BUN 14 mg/dL (7-18); BUN/Creat Ratio 12.8 RATIO (10-20); Calcium,Total 9.7 mg/dL (8.5-10.1); Chloride 103 mmol/L (98-107); Creatinine, Serum 1.09 mg/dL (0.70-1.30); EST Glomerular Filtration Rate 72 mL/min (>60); Est Glom Filt Rate - Afr Amer 88 mL/min (>60); Glucose 104 mg/dL (74-106); Potassium 4.1 mmol/L (3.5-5.1); Protein, Total 7.9 g/dL (6.4-8.2); Sodium Level 136 mmol/L (136-145)
== END | disposition home or self-care (01) ==
LOC: MTLAB 11:09
PROVIDERS: PCP Internal Medicine; Referring Provider Internal Medicine Gastroenterology; Visit Provider Internal Medicine Gastroenterology
DX: K74.60 Unspecified cirrhosis of liver (principal)
CPT/HCPCS: 36415; 80053; 82105; 85027; 85610; 85730

== ENCOUNTER → 2024-04-02 | Outpatient (CLI) | payer OTHER, SELFPAY ==
--- NOTE | 2024-04-02 10:17 | US_ITS ---
INDICATION: CIRRHOSIS EXAMINATION: Ultrasound US Abdomen Limited (quadrant) TECHNIQUE: Siegel scale and color doppler imaging was performed of the right upper quadrant. COMPARISON: Prior study dated: 10/16/2023 FINDINGS: LIVER: There is moderate increased echogenicity. The liver measures about 16.6 cm in length. The portal vein is patent with normal hepatopedal flow. Patent hepatic veins. No focal hepatic lesion. There is no free fluid. GALLBLADDER AND BILIARY TREE: Status post cholecystectomy. The proximal common bile duct measures 4 mm, which is within normal limits for the patient''s age. Sonographic Pavon''s sign: Not assessed. PANCREAS: No focal abnormality is demonstrated in the pancreas however, the pancreas is suboptimally visualized. No pancreatic ductal dilatation. Right kidney: The right kidney measures 11.3 cm in length. The renal cortex measures 1.5 cm. No evidence of hydronephrosis. US/Abdomen Limited IMPRESSION: 1. Hepatic steatosis. 2. Status post cholecystectomy. Electronically Signed: Evan Hoffmann MD at 12:54 EDT ,
== END | disposition home or self-care (01) ==
LOC: US 10:14
PROVIDERS: PCP Internal Medicine; Referring Provider Internal Medicine Gastroenterology; Visit Provider Internal Medicine Gastroenterology
DX: K74.60 Unspecified cirrhosis of liver (principal)
CPT/HCPCS: 76705

== ENCOUNTER → 2024-09-25 | Outpatient (CLI) | payer OTHER, SELFPAY ==
[2024-09-25 15:34] LABS: Absolute Lymphocyte Count 0.68 X10^3/uL (0.83-4.51); Absolute Neutrophil Count 2.4 X10^3/uL (2.0-7.7); Basophil# 0.04 X10^3/uL; Basophil% 1.1 % (0-1); Eosinophil# 0.05 X10^3/uL; Eosinophils% 1.3 % (0-5); Hematocrit 46.7 % (40-54); Hemoglobin 15.9 g/dL (13.0-16.5); Lymphocyte # 0.68 X10^3/ul (0.83-4.51); Lymphocyte % 18.1 % (19-41); Mean Corpuscular Hgb 31.8 pg (27.0-32.0); Mean Corpuscular Volume 93.4 fL (80-94); Mean Platelet Vol. 11.4 fl (6.2-12.0); Monocyte# 0.55 X10^3/uL; Monocyte% 14.7 % (0-10); NRBC Flagged by Analyzer 0 % (0-5); Neutrophil # 2.42 X10^3/uL (2.7-7.7); Neutrophil % 64.5 % (47-70); Platelet Count 141 K/mm3 (150-450); RBC Distribution Width SD 52.1 fl (35.1-43.9); White Blood Count 3.8 K/mm3 (4.4-11.0)
[2024-09-25 15:52] LABS: ALB/GLOB Ratio 1.3 RATIO (0.9-2.4); AST(SGOT) 77 U/L (<=37); Alanine Aminotransfer ALT/SGPT 64 U/L (<=46); Albumin, Serum 4.3 g/dL (3.4-4.8); Alkaline Phosphatase 84 U/L (40-129); Anion Gap 15 (5-15); BUN 13 mg/dL (4-19); BUN/Creat Ratio 13.3 RATIO (10-20); Calcium,Total 9.5 mg/dL (7.6-11.0); Carbon Dioxide 19.7 mmol/L (21.0-32.0); Chloride 101 mmol/L (98-108); Creatinine, Serum 1.01 mg/dL (0.70-1.20); EST Glomerular Filtration Rate 83 (>60); Globulin 3.3 g/dL (2.2-4.2); Glucose 116 mg/dL (70-99); Potassium 4.2 mmol/L (3.3-5.1); Protein, Total 7.5 g/dL (5.9-8.4); Sodium Level 136 mmol/L (133-145); Total Bilirubin 2.79 mg/dL (0.00-1.30)
[2024-09-25 16:10] LABS: International Normalized Ratio 1.2
[2024-09-25 16:11] LABS: Partial Thromboplast Time 28.9 Seconds (24.1-36.2)
[2024-09-27 04:07] LABS: AFP, Tumor Marker 5.1 ng/mL (0.0-8.4)
== END | disposition home or self-care (01) ==
LOC: MTLAB 11:15
PROVIDERS: PCP Internal Medicine; Referring Provider Internal Medicine Gastroenterology; Visit Provider Internal Medicine Gastroenterology
DX: K74.60 Unspecified cirrhosis of liver (principal)
CPT/HCPCS: 36415; 80053; 82105; 85025; 85610; 85730

== ENCOUNTER → 2024-10-03 | Outpatient (CLI) | payer OTHER, SELFPAY ==
--- NOTE | 2024-10-03 10:52 | US_ITS ---
PROCEDURE: ABDOMEN LIMITED (USABDL), 10/03/2024 REASON FOR EXAM: CIRRHOSIS COMPARISON: 04/02/2024 FINDINGS: Exam is slightly limited by shadowing bowel gas. Liver: Echogenic. 19.0 cm in length. No overt serosal nodularity. Gallbladder: Cholecystectomy. Biliary tree: Unremarkable. CBD measures 3 mm. Pancreas: Partially obscured by shadowing bowel gas, grossly unremarkable as visualized. Right kidney: Unremarkable. 10.2 cm in length. Other: No visualized free fluid. US/Abdomen Limited IMPRESSION: 1. Appearance of the liver which is most commonly associated with hepatic steat osis although early fibrosis/cirrhosis may have a similar appearance. No overt serosal nodularity to confirm cirrhosis. Correla te with clinical and laboratory evaluation and consider ultrasound elastography as indicated. 2. Cholecystectomy without biliary dilatation. 3. Additional description as above. Reading Location: [id number]
== END | disposition home or self-care (01) ==
LOC: US 10:48
PROVIDERS: PCP Internal Medicine; Referring Provider Internal Medicine Gastroenterology; Visit Provider Internal Medicine Gastroenterology
DX: K74.60 Unspecified cirrhosis of liver (principal)
CPT/HCPCS: 76705

== ENCOUNTER → 2025-02-27 | Outpatient (CLI) | payer MEDICARE, BC, SELFPAY ==
[2025-02-27 13:18] LABS: PSA,Total- Diagnostic 1.39 ng/mL (0.00-4.00)
== END | disposition home or self-care (01) ==
LOC: LAB 11:52
PROVIDERS: Referring Provider Urology; Visit Provider Urology
DX: R97.20 Elevated prostate specific antigen [PSA] (principal)
CPT/HCPCS: 36415; 84153

== ENCOUNTER → 2025-03-19 | Outpatient (CLI) | payer MEDICARE, BC, SELFPAY ==
[2025-03-19 12:17] LABS: Hematocrit 47.7 % (40-54); Hemoglobin 16.1 g/dL (13.0-16.5); Mean Corp Hgb Conc 33.8 g/dL (32-36); Mean Corpuscular Volume 93.9 fL (80-94); Mean Platelet Vol. 12.0 fl (6.2-12.0); Platelet Count 117 K/mm3 (150-450); RBC Distribution Width CV 14.0 % (11.6-14.6); RBC Distribution Width SD 49.0 fl (35.1-43.9); Red Blood Count 5.08 M/mm3 (4.6-6.2); White Blood Count 4.6 K/mm3 (4.4-11.0)
[2025-03-19 12:22] LABS: Prothrombin Time (Protime)PT. 15.0 SECONDS (11.7-14.9)
[2025-03-19 12:55] LABS: AST(SGOT) 94 U/L (<=37); Alanine Aminotransfer ALT/SGPT 101 U/L (<=46); Albumin, Serum 4.2 g/dL (3.4-4.8); Alkaline Phosphatase 83 U/L (40-129); Anion Gap 12 (5-15); BUN 12 mg/dL (4-19); BUN/Creat Ratio 11.3 RATIO (10-20); Calcium,Total 9.9 mg/dL (7.6-11.0); Carbon Dioxide 23.1 mmol/L (21.0-32.0); Chloride 102 mmol/L (98-108); Globulin 3.3 g/dL (2.2-4.2); Glucose 95 mg/dL (70-99); Potassium 4.3 mmol/L (3.3-5.1)
== END | disposition home or self-care (01) ==
LOC: MTLAB 10:08
PROVIDERS: Referring Provider Internal Medicine Gastroenterology; Visit Provider Internal Medicine Gastroenterology
DX: K74.60 Unspecified cirrhosis of liver (principal)
CPT/HCPCS: 36415; 80053; 82105; 85027; 85610

== ENCOUNTER → 2025-03-28 | Outpatient (CLI) | payer MEDICARE, BC, SELFPAY | END | disposition home or self-care (01) | LOC: MRI 14:07 | PROVIDERS: Referring Provider Internal Medicine Gastroenterology; Visit Provider Internal Medicine Gastroenterology | DX: K74.60 Unspecified cirrhosis of liver (principal) | CPT/HCPCS: 74183; A9575; A4216 ==